=== PATIENT | male | born 1950 | race Caucasian/White ===

== ENCOUNTER 2021-11-06 15:29 | Emergency (ER) | payer MEDICARE, BC, SELFPAY ==
[2021-11-06 15:44] VITALS: BP 159/68; PULSE 81; RESP 20; TEMP 36.6; O2SAT 97; BMI 25.0
--- NOTE | 2021-11-06 15:59 | CRLHL7_ITS ---
For Patients: As a result of the Cures Act, medical imaging exams and procedure reports are released immediately into your electronic medical record. You may view this report before your referring provider. If you have questions, please contact your health care provider. Indication: Trauma. Technique: Right shoulder, 3 views. Comparison: None. Findings: Bones: Alignment is normal. No fractures or bone lesions. Joint spaces: Unremarkable. Soft tissues: Unremarkable. Impression: No sign of acute injury. Dictated by Doug Perkins MD @ 11/06/2021 5:03:38 PM (Electronically Signed)
--- NOTE | 2021-11-06 16:01 | ED_ITS ---
[facility] - General Adult General Date Seen: 11/06/21 Chief complaint: Extremity Pain/Injury, Upper Stated complaint: Fall, Right shoulder injury Time Seen by Provider: 11/06/21 15:30 Source: patient Mode of arrival: ambulatory Limitations: no limitations History of Present Illness HPI narrative: 71-year-old male presents with injury to his right shoulder after a fall at home. He fell from standing height and landed on his right shoulder. It sounds like he did not have an outstretched arm to catch his fall. He denies any other injury. He is having pain over his right clavicle. No previous significant right shoulder injury. He is right-handed. He has Parkinson's disease. He is allergic to penicillin. He only takes carbidopa levodopa for medication. He ambulates fairly well. He does not use a walker or a cane. Related Data Home Medications Medication Instructions Recorded Confirmed carbidopa 25 mg-levodopa 100 mg 3 tab PO QID 11/06/21 11/06/21 tablet Allergies Allergy/AdvReac Type Severity Reaction Status Date / Time Penicillins Allergy Verified 11/06/21 15:48 Review of Systems Narrative: No other illness or injury. [facility] Medical History (Updated 11/06/21 @ 18:08 by James Rodgers MD) Parkinson's disease Social History Smoking Status: Never smoker Do you use any of these nicotine containing products: None How often do you have a drink containing alcohol: never How often do you have six or more drinks on one occasion: Never AUDIT-C Alcohol total score: 0 Non-prescribed substance use: denies use Exam Narrative: Exam Narrative: He is alert and appears in no distress. He gives his own history. He has an obvious coarse tremor involving his entire body. Neck is without significant tenderness. He moves his neck without significant pain Examination of his right shoulder shows tenderness and a palpable click when I palpate over his medial clavicle. Medial clavicle is quite swollen and tender. I cannot palpate continuity. The rest of the shoulder has minimal tenderness and no obvious deformity or swelling. He is able to flex his shoulder about 90? will rule limited by pain. Distal sensation and motion is intact. Respirations clear to auscultation. Abdomen is without tenderness. Radiographs of the right shoulder show what appears to be a displaced fracture of the medial clavicle. Const: Vital Signs, click to edit/add: Vital Signs - 24 hr 11/06/21 15:44 Temperature 97.9 F Pulse Rate [Right Pulse Oximeter] 81 Respiratory Rate 20 Blood Pressure [Le ft Upper Arm] 159/68 H Pulse Oximetry 97 Oxygen Delivery Me thod Room Air Documenting provider has reviewed patient's vital signs: yes Course Vital Signs Vital signs: Initial Vital Signs Temperature 97.9 F 11/06/21 15:44 Temperature Source Temporal Artery Scan 11/06/21 15:44 Pulse Rate 81 11/06/21 15:44 Respiratory Rate 20 11/06/21 15:44 Blood Pressure 159/68 H 11/06/21 15:44 Blood Pressure Mean 98 11/06/21 15:44 Blood Pressure Position Sitting 11/06/21 15:44 Pulse Oximetry 97 11/06/21 15:44 Oxygen Delivery Method 11/06/21 15:44 Vital Signs Temperature 97.9 F 11/06/21 15:44 Pulse Rate 81 11/06/21 15:44 Respiratory Rate 20 11/06/21 15:44 Blood Pressure 159/68 H 11/06/21 15:44 Pulse Oximetry 97 11/06/21 15:44 Oxygen Delivery Method 11/06/21 15:44 Temperature 97.9 F 11/06/21 15:44 Pulse Rate 81 11/06/21 15:44 Respiratory Rate 20 11/06/21 15:44 Blood Pressure 159/68 H 11/06/21 15:44 Pulse Oximetry 97 11/06/21 15:44 Oxygen Delivery Method 11/06/21 15:44 Discharge Plan Discharge Clinical Impression: Fracture of right clavicle Patient Disposition: Home, Self-Care Additional Instructions: Continue the wear the sling to support your arm and reduce your pain. Use ice, Tylenol or ibuprofen as needed for pain. Prescriptions: No Action carbidopa-levodopa 25-100 mg tablet 3 tab PO QID Label Comments: TAKE 3 TABLETS BY MOUTH 4 TIMES DAILY Follow Up/Referrals: Edenilson Mendoza MD [Primary Care Provider] - Coy Shelby MD [Staff Physician] - (4-5 days) Stand Alone Forms: MyHealth Info Instructions
[2021-11-06 18:13] VITALS: BP 130/61; PULSE 69; RESP 16; TEMP 36.2; O2SAT 94
--- NOTE | 2021-11-06 18:20 | CRLHL7_ITS ---
For Patients: As a result of the Century Cures Act, medical imaging exams and procedure reports are released immediately into your electronic medical record. You may view this report before your referring provider. If you have questions, please contact your health care provider. INDICATION: Medial clavicle pain. Injury. COMPARISON: Plain film same date. TECHNIQUE: Multidetector noncontrast images centered on the clavicle. FINDINGS: Somewhat complex angulated fracture of the proximal diaphysis is extra-articular to the moderately degenerated sternoclavicular joint. Surrounding contusion attenuation but no hematoma. Proximal fragment looks somewhat relatively depressed in the sagittal plane but does not appear to contact the subclavicular vascular structures. Slightly ventral cephalad butterfly fragment and inferior dorsal displaced butterfly fragment. Fracture is located roughly 4 cm from the clavicular head. Coracoclavicular distance is maintained. Moderate osteoarthritis of the AC joint. Zali-pl-gyqdxhok osteoarthritis glenohumeral joint. Fibrocystic lucent focus anterior greater tuberosity. There is shallow glenoid version. And grade 1 atrophy of the supraspinatus. Maintained although narrow acromiohumeral distance. Slight lateral downsloping acromion. Curvilinear anterior subacromial spurring. IMPRESSION: Comminuted mildly displaced proximal right clavicular diaphysis fracture. No intra-articular extension. No obvious vascular injury. Some surrounding contusion. Please note that all CT scans at this facility use dose modulation, iterative reconstruction, and/or weight-based dosing when appropriate to reduce radiation dose to as low as reasonably achievable. Dictated by Luca Brewster MD @ 11/06/2021 7:36:37 PM (Electronically Signed)
--- NOTE | 2021-11-06 18:40 | ED.NURSE ---
Pt to and back from CT
== END 2021-11-06 19:59 | disposition home or self-care (01) ==
PROVIDERS: Emergency Provider Family Medicine; PCP Psychiatry & Neurology Neurology
DX: S42.021A Displaced fracture of shaft of right clavicle, initial encounter for closed fracture (principal); W01.0XXA Fall on same level from slipping, tripping and stumbling without subsequent striking against object, initial encounter
CPT/HCPCS: 73030; 73200; 99283; 99284

== ENCOUNTER 2023-12-03 10:52 | Outpatient (CLI) | payer MEDICARE, BC, SELFPAY | END 2023-12-03 10:53 | disposition home or self-care (01) | PROVIDERS: PCP Psychiatry & Neurology Neurology; Visit Provider Physician Assistant | DX: R31.9 Hematuria, unspecified (principal) | CPT/HCPCS: 87086 ==

== ENCOUNTER 2025-01-17 14:43 | Emergency (ER) | payer MEDICARE, BC, SELFPAY ==
[2025-01-17] VITALS (15 sets, daily range): BP systolic 145–190; BP diastolic 62–116; PULSE 86–122; RESP 12–27; TEMP 36.6; O2SAT 99; BMI 20.6
--- NOTE | 2025-01-17 15:30 | ED.ARRPALP ---
HPI - Arrhythmia/Palpitations General Chief Complaint: Arrhythmia/Palpitations Stated Complaint: Afib, chest pain Time Seen by Provider: 01/17/25 15:18 History of Present Illness HPI narrative: This 74-year-old male has Parkinson's disease and history of chronic atrial fibrillation. He comes in today feeling some palpitations and reporting some pain in the right lateral chest wall. He does not report any lightheadedness or shortness of breath. He does take metoprolol and did take this medicine this morning. He arrives here with irregular heart rhythm and a rate of about 120 beats per minute. He does see a automotive glass technician and had an echocardiogram a couple months ago. He does take Eliquis for anticoagulation. Related Data Home Medications ?Medication ?Instructions ?Recorded ?Confirmed apixaban 2.5 mg tablet (Eliquis) 2.5 mg PO BID 12/03/23 01/17/25 metoprolol succinate 100 mg 100 mg PO DAILY 12/03/23 01/17/25 tablet,extended release 24 hr carbidopa ER 50 mg-levodopa 200 mg tab PO 01/17/25 tablet,extended release rosuvastatin 5 mg tablet 5 mg PO DAILY 01/17/25 01/17/25 Allergies Allergy/AdvReac Type Severity Reaction Status Date / Time Penicillins Allergy Verified 05/06/24 10:24 Review of Systems Status of ROS: Reports: 10 or more systems reviewed and unremarkable except as noted in History and below Narrative: Constitutional: No fevers, no weight gain or loss. Eyes: No discharge. No vision changes. HENT: No congestion, no sore throat, no ear pain. Cardiovascular: Some palpitations and right-sided chest discomfort. Respiratory: No shortness of breath, no wheezes, no cough. Gastrointestinal: No abdominal pain, no vomiting, no diarrhea. Genitourinary: No dysuria, no hematuria. Musculoskeletal: Normal range of motion. Skin: No rashes, no pruritis. Neurological: No dizziness, weakness, sensory change, speech change. Parkinson's symptoms with resting tremors. Endo/Heme/Allergies: No bruising or bleeding. No polydipsia. Pysch: no suicidality, no anxiety, no insomnia. All other systems reviewed and are negative. [facility] Medical History Parkinson's disease ?G20 - Parkinson's disease (ICD-10) Social History Smoking Status: Never smoker Do you use any of these nicotine containing products: None How often do you have a drink containing alcohol: never How often do you have six or more drinks on one occasion: Never AUDIT-C Alcohol total score: 0 Non-prescribed substance use: denies use Exam Narrative: Exam Narrative: Constitutional: Well-developed, well-nourished, no acute distress. HEENT: Normocephalic, atraumatic. Neck: Normal range of motion. Nontender. Supple. Heart: Irregular. No murmurs. Tachycardia. Intact distal pulses. Lungs: Clear to auscultation. No chest discomfort. No wheezes, rhonchi, or rales. Abdomen: Normal bowel sounds. Nontender. No rebound tenderness. Genitalia: Deferred. Back: No midline tenderness. Normal range of motion. Extremities: Normal range of motion. No injury. Skin: Intact. No rash. Warm. No erythema or pallor. Neurologic: No altered sensation. No weakness. Alert and oriented. Psychiatric: No suicidality. No anxiety or depression. No insomnia. Nursing notes and vitals signs are reviewed. Const: Vital Signs, click to edit/add: Vital Signs - 24 hr 01/17/25 14:56 01/17/25 15:15 01/17/25 15:30 Temperature 98 F Pulse Rate Pulse Rate [Pulse Oximeter] 122 H Respiratory Rate 20 12 22 Blood Pressure Blood Pressure [Ri ght Upper Arm] 187/62 H Pulse Oximetry 99 Oxygen Delivery Me thod Room Air 01/17/25 15:49 01/17/25 16:00 01/17/25 16:01 Temperature Pulse Rate Pulse Rate [Pulse Oximeter] Respiratory Rate 20 24 17 Blood Pressure 190/116 H Blood Pressure [Ri ght Upper Arm] Pulse Oximetry Oxygen Delivery Me thod 01/17/25 16:23 01/17/25 16:24 01/17/25 16:30 Temperature Pulse Rate 86 Pulse Rate [Pulse Oximeter] Respiratory Rate 21 24 19 Blood Pressure 145/98 H Blood Pressure [Ri ght Upper Arm] Pulse Oximetry Oxygen Delivery Ct thod 01/17/25 16:32 01/17/25 16:45 01/17/25 16:47 Temperature Pulse Rate Pulse Rate [Pulse Oximeter] Respiratory Rate 23 27 H 21 Blood Pressure 167/76 H 176/72 H Blood Pressure [Ri ght Upper Arm] Pulse Oximetry Oxygen Delivery Me thod Course Vital Signs Vital signs: Initial Vital Signs Temperature 98 F 01/17/25 14:56 Temperature Source Temporal Artery Scan 01/17/25 14:56 Pulse Rate 122 H 01/17/25 14:56 Pulse Rhythm Irregular 01/17/25 14:56 Respiratory Rate 20 01/17/25 14:56 Blood Pressure 187/62 H 01/17/25 14:56 Blood Pressure Mean 103 01/17/25 14:56 Blood Pressure Position Sitting 01/17/25 14:56 Pulse Oximetry 99 01/17/25 14:56 Oxygen Delivery Method Room Air 01/17/25 14:56 Vital Signs Temperature 98 F 01/17/25 14:56 Pulse Rate 122 H 01/17/25 14:56 Respiratory Rate 20 01/17/25 14:56 Blood Pressure 187/62 H 01/17/25 14:56 Pulse Oximetry 99 01/17/25 14:56 Oxygen Delivery Method Room Air 01/17/25 14:56 Temperature 98 F 01/17/25 14:56 Pulse Rate 86 01/17/25 16:23 Respiratory Rate 21 01/17/25 16:47 Blood Pressure 176/72 H 01/17/25 16:47 Pulse Oximetry 99 01/17/25 14:56 Oxygen Delivery Method Room Air 01/17/25 14:56 Medications Administered Medications: Discontinued Medications Generic Name Dose Route Start Last Admin Trade Name Jiq PRN Reason Stop Dose Admin Diltiazem HCl 20 mg 01/17/25 15:28 01/17/25 15:59 Diltiazem 5 Mg/Ml Inj IVP 01/17/25 15:29 20 mg ONCE ONE Administration Sodium Chloride 1,000 mls @ 1,000 mls/hr 01/17/25 15:30 01/17/25 15:59 0.9 % Sodium Chloride 1000 Ml IV 01/17/25 16:29 1,000 mls/hr .Q1H PAUL Administration MDM - Arrhythmia/Palpitations MDM Narrative Medical decision making narrative: This patient is brought in by his daughter because of some increased heart rate related to his atrial fibrillation. Throughout his stay here he has had normal heart rate with his chronic atrial fibrillation. He is not describing any new symptoms otherwise. EKG shows no sign of ST or T-wave abnormalities. Labs returned also with reassuring results. His sodium is a bit low at 129 so advised him to add some any salt to his diet for a bit. He is not on any medicines that are wasting sodium. He does take metoprolol succinate 100 mg daily. He may need an adjustment in his medications but he plans to follow-up with his automotive glass technician in this regard. He provided some urine and his daughter wanted this analyzed. There was some microscopic hematuria but no sign of infection. I advised him to have this rechecked also. Lab Data Labs: Lab Results 01/17/25 01/17/25 01/17/25 Range/Units 15:07 15:29 15:45 WBC 9.82 (4.50-11.00) K/uL RBC 4.44 (4.30-5.90) m/uL Hgb 13.3 L (13.5-17.5) gm/dL Hct 40.1 (37.0-53.0) % MCV 90 (80-100) fL MCH 30 (26-34) pg MCHC 33 (32-36) gm/dL RDW Coeff of Chris 13.0 (11.5-15.5) % Plt Count 137 L (140-440) K/uL Neut % (Auto) 79.5 H (42.0-72.0) % Lymph % (Auto) 10.7 L (20-44) % [place] % (Auto) 7.8 (0.0-11.0) % Eos % (Auto) 1.2 (0.0-7.0) % Baso % (Auto) 0.3 (0.0-3.0) % Neut # (Auto) 7.80 H (1.7-7.0) K/uL Lymph # (Auto) 1.10 (0.90-2.90) K/uL [place] # (Auto) 0.80 (0.00-0.90) K/UL Eos # (Auto) 0.12 (0.00-0.50) K/uL Baso # (Auto) 0.03 (0.00-0.30) K/uL Abs Immat Gran (auto) 0.05 (0.00-0.30) K/uL Imm/Tot Granulo (auto) 0.5 % Sodium 129 L (135-149) mmol/L Potassium 3.5 L (3.6-5.1) mmol/L Chloride 94 L (96-114) mmol/L Carbon Dioxide 27 (20-32) mmol/L Anion Gap 8 (7-15) mEq/L BUN 15 (7-30) mg/dL Creatinine 0.8 (0.5-1.5) mg/dL Estimated Creat Clear 70.69 Estimated GFR 94 ml/min Glucose 103 (60-115) mg/dL Calcium 9.1 (8.4-10.6) mg/dL Magnesium 2.0 (1.5-2.6) mg/dL Urine Color Yellow (Yellow) Urine Appearance Clear (Clear) Urine pH 6.5 (5.0-8.5) Ur Specific [place] 1.010 (1.000-1.030) Urine Protein Negative (Negative) Urine Glucose (UA) Negative (Negative) Urine Ketones Negative (Negative) Urine Blood 2+ A (Negative) Urine Nitrite Negative (Negative) Urine Bilirubin Negative (Negative) Urine Urobilinogen 0.2 (0.2-1.0) Ur Leukocyte Esterase Negative (Negative) Urine RBC 2-5 A (0-2) Urine WBC 0-2 (0-5) Ur Squamous Epith Cells None (None-Few) Urine Bacteria None (None) POC Troponin I 0.01 (0.01-0.04) ng/ml ECG Data Attestation: I personally reviewed and interpreted this ECG as follows: Interpretation: Atrial fibrillation with rapid ventricular response. Rate is 107 beats per minute. There are no specific ST or T-wave abnormalities. Discharge Plan Discharge Clinical Impression: Atrial fibrillation Patient Disposition: Home, Self-Care Condition: Stable Additional Instructions: Continue current plans. Follow up with primary physician and cardiology clinic for ongoing management. Return if worsening. Prescriptions: No Action metoprolol succinate 100 mg tablet extended release 24 hr 100 mg PO DAILY Eliquis 2.5 mg tablet 2.5 mg PO BID carbidopa-levodopa 50-200 mg tablet extended release PO rosuvastatin 5 mg tablet 5 mg PO DAILY Follow Up/Referrals: Sundeep Mccormack MD [Primary Care Provider, Family Practice] Stand Alone Forms: MyHealth Info Instructions
--- OUTSIDE RECORDS SUMMARY | 2025-01-17 15:39 | XMS_ITS | Encounter Summary ---
Author Organization [facility] Address [address] [place] [address] Care Team Providers Care Biology Teacher Name Role Phone Sundeep Mccromack M.D. Primary Care [place]os carvalho Encounter Details Date Type Department Care Team (Latest Contact Info) Description 11/14/2024 Clinical Communication Department of Cardiovascular Diseases in [place], [place] [address] [place] [phone] David Morton M.D. [address] [place] [phone] Social History Tobacco Use Types Packs/Day Years Used Date Smoking Tobacco: Never Smokeless Tobacco: Never Alcohol Use Standard Drinks/Week Comments Not Currently 0 (1 standard drink = 0.6 oz pur e alcohol) [facility] Utilities Answer Date Recorded In the past 12 months has e electric, gas, oil, or water company threatened to shut off services in your home? No 08/06/2024 Humiliation, Afraid, Rape, and Kick questionnair e Answer Date Recorded Within the last year, have y ou been afraid of your partner or ex-partner? No 06/15/2022 Within the last year, have y ou been humiliated or emotionally abused in other ways by your partner or ex-partner? No Within the last year, have y ou been kicked, hit, slapped, or otherwise physically hurt by your partner or ex-partner? No 06/15/2022 Within the last year, have y ou been raped or forced to have any kind of sexual activity by your partner or ex-partner? No 06/15/2022 Hunger Vital Sign Answer Date Recorded Within the past 12 months, y ou worried that your food would run out before you got the money to buy more. Never true 08/07/19 25 Within the past 12 months, t he food you bought just didn't last and you didn't have money to get more. Never true 08/06/2024 PRAPARE - Transportation Answer Date Re corded In the past 12 months, has l ack of transportation kept you from medical appointments or from getting medications? No 07/2024 In the past 12 months, has l ack of transportation kept you from meetings, work, or from getting things needed for daily living? No 08/06/2024 Housing Stability Answer Date Recorded What is your living situation today? I have a [facility] place to live 08/06/2024 Education Answer Date Recorded What is the highest level of school you have completed or the highest degree you have received? Associate degree: occupational, technical, or vocational program 06/01/2020 Sex and Gender Information Value Date Recorded Sex Assigned at Male 04/10/2018 7:35 PM MACHINIST APPRENTICE Legal Sex Male 4:22 PM MACHINIST APPRENTICE Gender Identity Male 04/10/2018 7:35 PM MACHINIST APPRENTICE Sexual Orientation Straight 04/10/2018 7: 35 PM MACHINIST APPRENTICE documented as of this encounter Plan of Treatment Upcoming Encounters Date Type Department Care Team (Late st Contact Info) Description 01/18/2025 9:50 AM CDT Appointment Department of Laboratory Medicine in [place], [place] [address] [place] [phone] David Morton M.D. [address] [place] [phone] 01/18/2025 10:15 AM CDT Office Visit Department of Family Medicine, [facility], in [place], [place] [address] [place] [phone] Sundeep Mccormack M.B.B.S., M.D. [address] [facility] [place] [phone] documented as of this encounter Visit Diagnoses Not on filedocumented in this encounter Additional Health Concerns Assessment Noted Time PHQ-9 Depression Total Score: 0 03/11/20 15 3:49 PM MACHINIST APPRENTICE A fall risk assessment has been complete d for the patient 07/16/2022 11:19 AM CDT documented as of this encounter Care Teams Biology Teacher Relationship Specialty Start Date End Date Sundeep Mccormack M.B.B.S., Alicja. [address] [facility] [place] [phone] PCP - General Family Medicine 06/25/22 [facility] 07/16/22 documented as of this encounter
--- OUTSIDE RECORDS SUMMARY | 2025-01-17 15:39 | XMS_ITS | Clinical Summary ---
Author Organization [facility] Address [address] [place] [address] Care Team Providers Care Rod Piler Name Role Phone Sundeep Mccormack Primary Care Provider Encounters Date Type Department Care Team Description 11/03/2024 1:00 PM CDT Ancillary Procedure [facility] [address] [place] [phone] 11/03/2024 Travel from Last 3 Months Immunizations Immunization Administration Dates Next Due COVID-19 VACCINE SPIKEVAX (M ODERNA 50MCG/0.5ML) 12YO+ PFS 12/23/2023 Influenza, High-dose Quadrivalent Inactivated ,01/10/2022 Influenza, Inactivated IIV3 (Age 65+ Years) Preserv Free 12/23/2023 Pneumococcal conj 13-Valent (Prevnar 13) 018 RSV, Recombinant ADJ Reconst ituted (Arexvy 120MCG/0.5mL) 03/17/2023 Tdap 09/29/2011 Social History Tobacco Use Types Packs/Day Years Used Date Smoking Tobacco: Never Assessed Sex and Gender Information Value Date Recorded Sex Assigned at Not on file Legal Sex Male 1:54 PM CDT Gender Identity Not on file Sexual Orientation Not on file Plan of Treatment Health Maintenance Due Date Last Done Comments Depression screening for age 12+ 1964 BMI (ht and wt on same day) for age 18+ 1970 Hepatitis C screening for age 18-79 1970 Colonoscopy through age 75 1997 Lipids for age 45-75 1997 Zoster (shingles) series for age 50+ (1 of 2) 2002 Pneumococcal series for age 50+ (2 of 2 - PCV20 or PCV21) 01/14/2019 01/14/2018 Tetanus booster 09/28/2021 09/29/2011 COVID-19 vaccine series ( season) 2024 12/23/2023, 01/19/2023, 01/10/2022, Additional history exists Influenza Vaccine (#1) 2024 12/23/2023 RSV vaccine for adults or Completed 03/17/2023 Hepatitis B series for 19+ Aged Out N o longer eligible based on patient's age to complete this topic Procedures Procedure Name Priority Date/Time Associated Diagnosis Comments ECHO TTE COMPLETE WO CONTRAST Routine 11/03/2024 1:35 PM CDT Atrial fibrillation (HC) from Last 3 Months Results * ECHO TTE COMPLETE WO CONTRAST (11/03/2024 1:35 PM CDT) AORTIC VALVE MEAN PG 5 mmHg EJECTION FRACTION 52 % PEAK TR VELOCITY 3.1 m/s LVEDD 4.6 cm EJECTION FRACTION 50 - 55% Anatomical Region Laterality Modality Ultrasound 11/03/2024 12:5 5 PM CDT Narrative 11/03/2024 4:38 PM CDT ECHOCARDIOGRAM FRANCIS LOFTON : 1950 73 years Study Date: 11/03/2024 12:55:50 PM Gender: M BP: 186/86 mmHg Height: 191.00 cm BSA: 2.11 m Weight: 82.00 kg Tech: FERNANDA Referring MD: ERIC ROSADO Site: [facility] Reading Location: Mobile OP Patient Location: Outpatient. Procedure: 2D, Color Doppler and Spectral Doppler. Indication for study: At-fib Cardiac Rhythm: Atrial fibrillation.Study quality: Fair. Final Impressions: 1. Normal left ventricular size, mildly increased wall thickness, low normal global systolic function, calculated EF of 52 %. 2. The aortic valve is trileaflet, no stenosis and moderate to severe regurgitation. 3. Moderately enlarged left atrium. 4. Tricuspid valve is normal, moderate tricuspid regurgitation. 5. Color Doppler suggests a left to right atrial level shunt. 6. Dilated sinus of Valsalva, diameter of 4.6 cm (upper limit of normal for age, sex, and BSA is 4.2 cm*), Height Index 2.40 cm/m. 7. Mixed parameters for AI assessment, eccentric AI with intemittent steep slope and reversal of flow in aortic arch. Consider further assessment for evaluation of AI severity. Chamber Sizes and Function Normal left ventricular size, mildly increased wall thickness, low normal global systolic function, calculated EF of 52 %. No resting regional wall motion abnormality visualized. Left atrial size is moderately enlarged. Right ventricular cavity size is normal, global systolic RV function is normal. The right atrium is moderately enlarged. Right atrial area is 30 cm . The pulmonary artery is of normal size and origin. The sinus of Valsalva is dilated. The ascending aorta is normal sized. Valves, RV Pressures and Diastolic Function The aortic valve is trileaflet, no stenosis and moderate to severe regurgitation. The mitral valve is normal in structure, trace mitral regurgitation. Diastolic function assessment not performed. The tricuspid valve is normal in structure, moderate tricuspid regurgitation. The tricuspid regurgitant velocity is 3.1 m/s, the estimated right ventricular systolic pressure is 39 mmHg plus right atrial pressure. The pulmonic valve is normal. No pulmonary regurgitation. TTE images do not appear adequate for transcather intervention with patient supine. Masses, Effusion, Shunts There is no pericardial effusion. The inferior vena cava is normal sized, respiratory size variation greater than 50%. Color flow Doppler suggests a left to right shunt across the interatrial septum. MEASUREMENTS AND CALCULATIONS 2-D Measurements and LV Function: LVID (d) 4.6 cm Planimetered EF 52 % LVID (s) 3.2 cm LV FS% (2D) 32 % IVS (d) 1.4 cm LVOT diameter 2.3 cm LVPW (d) 1.2 cm HR 111 bpm Ao Sinus 4.6 cm LA Vol index 47 ml/m2 Ao Sinus ULN 4.2 cm * RA area 30 cm Asc Ao 3.5 cm RV Basal Diam 4.0 cm Asc Ao ULN 4.3 cm * RV Mid Diam 2.1 cm * Input BSA outside of range, reported values correspond to BSA = 2.1 Diastology: Mitral E Peak 1.0 m/s Aortic Valve: Vmax 1.5 m/s SHAUN (V) 3.59 cm VTI 0.34 m SHAUN (I) 3.58 cm LVOT V max 1.3 m/s Max PG 9 mmHg LVOT VTI 0.29 m Mean PG 5 mmHg SV 120 ml Dim Index 0.85 SV index 57 ml/m CO 13.4 l/min CI 6.3 l/min/m Tricuspid Valve and estimated PA pressures: TR Vmax 3.1 m/s TAPSE 2.2 cm TR maxG 39 mmHg . This study was interpreted by an [facility] accredited facility. Final Procedure Note Kevin Mejias MD - 11/03/2024 ECHOCARDIOGRAM FRANCIS LOFTON : 1950 73 years Study Date: 11/03/2024 12:55:50 PM Gender: M BP: 186/86 mmHg Height: 191.00 cm BSA: 2.11 m Weight: 82.00 kg Tech: FERNANDA Referring MD: ERIC ROSADO Site: [facility] Reading Location: Mobile OP Patient Location: Outpatient. Procedure: 2D, Color Doppler and Spectral Doppler. Indication for study: At-fib Cardiac Rhythm: Atrial fibrillation.Study quality: Fair. Final Impressions: 1. Normal left ventricular size, mildly increased wall thickness, lownormal global systolic function, calculated EF of 52 %. 2. The aortic valve is trileaflet, no stenosis and moderate to severeregurgitation. 3. Moderately enlarged left atrium. 4. Tricuspid valve is normal, moderate tricuspid regurgitation. 5. Color Doppler suggests a left to right atrial level shunt. 6. Dilated sinus of Valsalva, diameter of 4.6 cm (upper limit of normalfor age, sex, and BSA is 4.2 cm*), Height Index 2.40 cm/m. 7. Mixed parameters for AI assessment, eccentric AI with intemittentsteep slope and reversal of flow in aortic arch. Consider furtherassessment for evaluation of AI severity. Chamber Sizes and Function Normal left ventricular size, mildly increased wall thickness, low normalglobal systolic function, calculated EF of 52 %. No resting regional wallmotion abnormality visualized. Left atrial size is moderately enlarged.Right ventricular cavity size is normal, global systolic RV function isnormal. The right atrium is moderately enlarged. Right atrial area is 30cm . The pulmonary artery is of normal size and origin. The sinus ofValsalva is dilated. The ascending aorta is normal sized. Valves, RV Pressures and Diastolic Function The aortic valve is trileaflet, no stenosis and moderate to severeregurgitation. The mitral valve is normal in structure, trace mitralregurgitation. Diastolic function assessment not performed. The tricuspidvalve is normal in structure, moderate tricuspid regurgitation. Thetricuspid regurgitant velocity is 3.1 m/s, the estimated right ventricularsystolic pressure is 39 mmHg plus right atrial pressure. The pulmonicvalve is normal. No pulmonary regurgitation. TTE images do not appearadequate for transcather intervention with patient supine. Masses, Effusion, Shunts There is no pericardial effusion. The inferior vena cava is normal sized,respiratory size variation greater than 50%. Color flow Doppler suggests aleft to right shunt across the interatrial septum. MEASUREMENTS AND CALCULATIONS 2-D Measurements and LV Function: LVID (d) 4.6 cm Planimetered EF 52% LVID (s) 3.2 cm LV FS% (2D) 32% IVS (d) 1.4 cm LVOT diameter2.3 cm LVPW (d) 1.2 cm HR111 bpm Ao Sinus 4.6 cm LA Vol index 47ml/m2 Ao Sinus ULN 4.2 cm * RA area 30cm Asc Ao 3.5 cm RV Basal Diam4.0 cm Asc Ao ULN 4.3 cm * RV Mid Diam2.1 cm * Input BSA outside of range, reported values correspond to BSA = 2.1 Diastology: Mitral E Peak 1.0 m/s Aortic Valve: Vmax 1.5 m/s SHAUN (V) 3.59 cm VTI 0.34 m SHAUN (I) 3.58 cm LVOT V max 1.3 m/s Max PG 9 mmHg LVOT VTI 0.29 m Mean PG 5 mmHg SV 120 ml Dim Index 0.85 SV index 57 ml/m CO 13.4 l/min CI 6.3 l/min/m Tricuspid Valve and estimated PA pressures: TR Vmax 3.1 m/s TAPSE 2.2 cm TR maxG 39 mmHg . This study was interpreted by an [facility] accredited facility. Final us Eric Rosado MD ECHO ORD Final Result from Last 3 Months Insurance BLUE [employer]OSS [place] BLUE MR PB ONLY Care Teams Rod Piler Relationship Specialty Start Date End Date Sundeep Mccormack MBBS [address] [place] [address] [place] [address] PCP - General Family Practice 12/23/23
--- OUTSIDE RECORDS SUMMARY | 2025-01-17 15:39 | XMS_ITS | Encounter Summary ---
Author Organization [facility] Address [address] [place] [address] Care Team Providers Care Gm Video Name Role Phone Sundeep Mccormack M.D. [facility] Reason for Referral * Outpatient (Routine) - Authorized Specialty Diagnoses / Procedures Referred By Contac t Referred To Contact Sundeep Mccormack M.B.B.S., M.D. [address] [place] [address] Phone: tel: fax: [facility] Region Referral ID Status Reason Start Date Expiration Date V isits Requested Visits Authorized [id number] Authorized 01/10/2025 07/12/2026 1 1 Scheduling Instructions Nurse AWV Do not schedule prior to due date to ensure insurance coverage Visit: Medicare Annual Wellness due on 07/18/2023. Encounter Details Date Type Department Care Team (Late st Contact Info) Description 01/10/2025 Orders Only [facility] PCP [facility] MNT Sundeep Mccormack M.B.B.S., M.D. [address] [place] [address] Social History Tobacco Use Types Packs/Day Years Used Date Smoking Tobacco: Never Smokeless Tobacco: Never Alcohol Use Standard Drinks/Week Comments Not Currently 0 (1 standard drink = 0.6 oz pur e alcohol) [facility] Utilities Answer Date Recorded In the past [...] your living situation today? I have a [facility] place to live 08/06/2024 Education Answer Date Recorded What is the highest level of school you have completed or the highest degree you have received? Associate degree: occupational, technical, or vocational program 06/01/2020 Sex and Gender Information Value Date Recorded Sex Assigned at Male 04/10/2018 7:35 PM DYE RANGE OPERATOR CLOTH Legal Sex Male 4:22 PM DYE RANGE OPERATOR CLOTH Gender Identity Male 04/10/2018 7:35 PM DYE RANGE OPERATOR CLOTH Sexual Orientation Straight 04/10/2018 7: 35 PM DYE RANGE OPERATOR CLOTH documented as of this encounter Plan of Treatment Upcoming Encounters Date Type Department Care Team (Late st Contact Info) Description 01/18/2025 9:50 AM CDT Appointment Department of Laboratory Medicine in [place], [place] [address] [place] [address] David Morton M.D. [address] [place] [address] 01/18/2025 10:15 AM CDT Office Visit Department of Family Medicine, [facility], in [place], [place] [address] [place] [address] Sundeep Mccormack M.B.B.S., M.D. [address] [place] [address] Scheduled Referrals Name Type Priority Associated Diagnoses Orde r Schedule Primary Care nurse visit (clinic) - [facility] Region; Medicare Annual Wellness Outpatient Referral Routine Expected: 02/07/2025, Expires: 06/29/2025 documented as of this encounter Visit Diagnoses Not on filedocumented in this encounter Additional Health Concerns Assessment Noted Time PHQ-9 Depression Total Score: 0 03/11/20 15 3:49 PM DYE RANGE OPERATOR CLOTH A fall risk assessment has been complete d for the patient 07/16/2022 11:19 AM CDT documented as of this encounter Care Teams Gm Video Relationship Specialty Start Date End Date Sundeep Mccormack M.B.B.S. MJanel [address] [place] [phone] PCP - General Family Medicine 06/25/22 [facility] 07/16/22 documented as of this encounter
--- OUTSIDE RECORDS SUMMARY | 2025-01-17 15:39 | XMS_ITS | Clinical Summary ---
Author Organization [facility] Address [address] [place] [address] Care Team Providers Care Foxing Cutting Machine Operator Name Role Phone Sundeep Mccormack M.D. Primary Care Tacos carvalho Source Comments Patient records contain information from all sites at [facility]. For routine questions regarding patient records, call [phone] during business hours, M-F 8:00 AM - 5:00 PM Central Time. Record requests for emergency care only can be directed to [phone] at any time.[facility] Allergies Active Allergy Reactions Criticality Noted Date Comments Penicillins Other (see comments) 09/29/2011 Medications * This document contains information received from the source organization and may not represent a complete record from that organization. MULTIVITAMIN ORAL Take by mouth daily. 2 Active coenzyme Q10 10 mg capsule Take by mouth as needed. Active cholecalciferol (Vitamin D3) 50 mcg (2,000 Unit) tablet Take 50 mcg by mouth daily. Takes occasionally Active carbidopa-levodo pa (Sinemet CR) 50-200 mg per ER tablet Take 2 tablets by mouth 3 (three) times a day. Take at 7-8am, 2pm and 7pm. 180 tablet 11 5 Active apixaban (Eliquis) 2.5 mg tabletIndication s:Atrial Fibrillation Unspecified (HCC) Take 1 tablet (2.5 mg total) by mouth 2 (two) times a day. 180 tablet 3 5 026 Active metoprolol succinate (Toprol XL) 100 mg 24 hr tabletIndication s:Atrial Fibrillation Unspecified (HCC) Take 1 tablet (100 mg total) by mouth daily. 90 tablet 3 5 026 Active rosuvastatin (Crestor) 5 mg tablet Take 1 tablet (5 mg total) by mouth daily. 30 tablet 11 5 026 Active Active Problems Patient Care Coordination No te Formatting of this note migh t be different from the original. Authorization to disclose protected health information signed for Daughter Dania Reyes on 04/15/18. Problem Noted Date Diagnosed Date Atrial Fibrillation Unspecified 08/09/2023 Assessment & Plan (10/14/2024 12:55 PM CDT): Orders: apixaban (Eliquis) 2.5 mg tablet; Take 1 tablet (2.5 mg total) by mouth 2 (two) times a day. metoprolol succinate (Toprol XL) 100 mg 24 hr tablet; Take 1 tablet (100 mg total) by mouth daily. Sodium; Future Potassium; Future Creatinine with Estimated GFR; Future History Of Falling 09/23/2022 Dystonia 04/15/2018 Parkinsonism Unspecified 03/08/2013 Overview (08/25/2016): Parkinson's Disease, Primary* Encounters Date Type Department Care Team Description 01/10/2025 Orders Only [facility] Sundeep Mccormack M.B.B.S., MVelia. 11/14/2024 Clinical Communication Department of Cardiovascular Diseases in [place], [place] [address], [place] [address] David Morton M.D. from Last 3 Months Immunizations Immunization Administration Dates Next Due Influenza TIV (IM) 12/23/2023 Influenza high dose QV(65 years or older) (PF) 1 ,01/10/2022 Influenza, Quadrivalent, Adjuvanted, Preservativ e Free 12/21/2020 Influenza, Unspecified 03/07/2015,02/28/2014 PCV13 01/14/2018 PCV20 09/29/2024 RSV: respiratory syncytial v irus (AREXVY) recombinant vaccine 03/17/2023 SARS-COV-2 (COVID-19) - PFIZ ER (Discontinued)(12 years or older) 07/06/2020,06/15/2020 Tdap 09/29/2024,09/29/2011 influenza trivalent high dose (HD)(PF) 8 influenza trivalent vaccine (6 months and older) (PF) 12/04/2019 Family History Medical History Relation Name Comments Arthritis Daughter 1 Dania Thyroid disease Daughter 1 Dania Thyroid disease Daughter 2 Essie Hypertension Father 1 Cancer Father 2 Min Lung Cancer/Mes othelioma Asthma Sister 1 Cierra Arthritis Sister 2 Dinora Hypertension Sister 2 Dinora Cancer Sister 3 Lisa Lung Cancer Lung cancer Sister 3 Lisa Smoker Sister 3 Lisa Cancer Sister 4 Lisa Lung Cancer Lung cancer Sister 4 Lisa Smoker Sister 4 Lisa No Known Problems Son Xu Relation Name Status Comments Daughter 1 Dania Alive Daughter 2 Essie Alive Father 1 Father 2 Min Alive Sister 1 Cierra Alive Sister 2 Dinora Alive Sister 3 Lisa Sister 4 Lisa Alive Son Xu Alive Social History Tobacco Use Types Packs/Day Years Used Date Smoking Tobacco: Never Smokeless Tobacco: Never Tobacco Cessation:Counseling Given: Not Answered Alcohol Use Standard Drinks/Week Comments Not Currently 0 (1 standard drink = 0.6 oz pur e alcohol) [facility] Utilities Answer Date Recorded In the past 12 months has [facility] [employer], [employer], or water [employer] threatened to shut off services in your [...] your living situation today? I have a [facility] place to live 08/06/2024 Education Answer Date Recorded What is the highest level of school you have completed or the highest degree you have received? Associate degree: occupational, technical, or vocational program 06/01/2020 Sex and Gender Information Value Date Recorded Sex Assigned at Male 04/10/2018 7:35 PM HEARING AID REPAIRER Legal Sex Male 4:22 PM HEARING AID REPAIRER Gender Identity Male 04/10/2018 7:35 PM HEARING AID REPAIRER Sexual Orientation Straight 04/10/2018 7: 35 PM HEARING AID REPAIRER Last Filed Vital Signs Vital Sign Reading Time Taken Comments Blood Pressure 171/65 10/13/2024 10:18 AM CDT Pulse 90 10/13/2024 10:18 AM CDT Temperature 35.3 C (95.6 F) 08/09/2023 10:19 AM CDT Respiratory Rate 16 08/09/2023 10:19 AM CDT Oxygen Saturation 100% 10/13/2024 10:11 AM CDT Inhaled Oxygen Concentration - - Weight 77.2 kg (170 lb 3.1 oz) 10/13/2024 10:11 AM CDT Height 188.9 cm (6' 2.37) 08/09/2023 10:19 AM C DT Body Mass Index 21.63 08/09/2023 10:19 AM CDT Plan of Treatment Upcoming Encounters Date Type Department Care Team (Late st Contact Info) Description 01/18/2025 9:50 AM CDT Appointment Department of Laboratory Medicine in [place], [place] [address] [place] [address] David Morton M.D. [address] [place] [address] 01/18/2025 10:15 AM CDT Office Visit Department of Family Medicine, [facility], in [place], [place] [address] [place] [address] Sundeep Mccormack M.B.B.S., M.D. [address] [place] [phone] Health Maintenance Due Date Last Done Comments CT Colonography 1950 Cologuard 1950 Colonoscopy 1950 Colorectal Cancer Screening 1950 FIT 1950 Hepatitis C Screening 1950 Zoster Vaccines (1 of 2) 2002 Visit: Medicare Annual Wellness 07/18/2023 07/16/2022 Depression Screening (Annual PHQ-2) 04/05/2024 Visit: Annual, age 65+ (or Medicare and <65) 08/08/2024 08/09/2023 COVID-19 Vaccine ( season) 2025 12/10/2024, 12/23/2023, 01/19/2023, Additional history exists Fasting Glucose for Diabetes Screening 10/05/2026 10/06/2023, 07/16/2022, 10/16/2016, Additional history exists DTaP,Tdap,and Td Vaccines (3 - Td or Tdap) 09/29/2034 09/29/2024, 09/29/2011 RSV vaccine - (32-36 weeks) or 50+ years Completed 03/17/2023 Fall Risk Screen (Annual) Completed 09/29/2024 Pneumococcal vaccine (50+ years) Completed 09/29/2024, 01/14/2018 Influenza Vaccine Completed 12/10/2024, , 01/19/2023, Additional history exists IPV Vaccines Aged Out No longer eligi ble based on patient's age to complete this topic Medical Devices Implanted Type Area Pressfitter Device Identifier Shelf Expiration Date Model / Serial / Lot Ocular Lens Ocular Lens Bilateral : Eye Procedures Procedure Name Priority Date/Time Associated Diagnosis Comments COMPREHENSIVE METABOLIC PANEL, S/P Routine 10/06/2023 9:57 AM CDT Atrial Fibrillation Unspecified (HCC) from Last 3 Months or Most Recently Relevant to Health Maintenance Results * (ABNORMAL) Comprehensive Metabolic Panel (10/06/2023 9:57 AM CDT) Potassium, P 4.0 3.6 - 5.2 mmol/L 10/06/2023 1:34 PM CDT OWAT Sodium, P 137 135 - 145 mmol/L 10/06/2023 1:34 PM CDT OWAT Chloride, P 103 98 - 107 mmol/L 10/06/2023 1:34 PM CDT OWAT Bicarbonate, P 25 22 - 29 mmol/L 10/06/2023 1:34 PM CDT OWAT Anion Gap, P 9 7 - 15 10/06/2023 1:34 PM CDT OWAT BUN (Blood Urea Nitrogen), P 11 8 - 24 mg/dL 10/06/2023 1:34 PM CDT OWAT Creatinine 0.78 0.74 - 1.35 mg/dL 10/06/2023 1:34 PM CDT OWAT Estimated GFR (eGFR) >90 >=60 mL/min/BS A 10/06/2023 1:34 PM CDT OWAT Comment: Estimated GFR calculated using the 2020 CKD_EPI creatinine equation. Calcium, Total, P 8.7(L) 8.8 - 10.2 mg/dL 10/06/2023 1:34 PM CDT OWAT Glucose, P 94 70 - 140 mg/dL 10/06/2023 1:34 PM CDT OWAT Protein, Total, P 6.8 6.3 - 7.9 g/dL 10/06/2023 1:34 PM CDT OWAT Albumin, P 4.2 3.5 - 5.0 g/dL 10/06/2023 1:34 PM CDT OWAT Aspartate Aminotransferase (AST), P 22 8 - 48 U/L 10/06/2023 1:34 PM CDT OWAT Alkaline Phosphatase, P 76 40 - 129 U/L 10/06/2023 1:34 PM CDT OWAT Alanine Aminotransferase (ALT), P <5(L) 7 - 55 U/L 10/06/2023 2:41 PM CDT OWAT Bilirubin, Total, P 0.9 0.0 - 1.2 mg/dL 10/06/2023 1:34 PM CDT OWAT Blood (Blood, Venous) 10/06/2023 9:57 AM CDT 10/06/2023 1:05 PM CDT Sundeep Ibarra M.D. LAB BLOOD ADD-O N Final Result [facility] [address] [place] [address], [place] OWAT [facility] in [place] [address] [place] [address] from Last 3 Months or Most Recently Relevant to Health Maintenance Insurance [facility] MEDICARE Advance Directives For more information, please contact: [phone] Documents on File Type Date Recorded Patient Bark Spudder Expl anation Advance Directives 07/28/2023 11:08 AM Dania Reyes HCPOA/ADVOCATE/AGENT/R EPRESENTATIVE/SURROGAT E Healthcare Agents on File Name Relationship Healthcare Agent Relationshi p Communication Dania Reyes Daughter Health Care Agent Xu Reyes Son First Alternate Health Care Agent Care Teams Foxing Cutting Machine Operator Relationship Specialty Start Date End Date Sundeep Mccormack M.B.B.S., MVelia. [address] [place] [phone] PCP - General Family Medicine 06/25/22 [facility] 07/16/22
[2025-01-17 15:50] LABS: Troponin, Point-of-Care* 0.01 ng/ml (0.01-0.04)
[2025-01-17 15:57] LABS: Hematocrit* 40.1 % (37.0-53.0); Hemoglobin* 13.3 gm/dL (13.5-17.5); Immature Granulocytes Abs Auto 0.05 K/uL (0.00-0.30); Immature Granulocytes Pct Auto 0.5 %; Mean Corpuscular HGB Conc 33 gm/dL (32-36); Mean Corpuscular Hemoglobin 30 pg (26-34); Mean Corpuscular Volume 90 fL (80-100); RDW Coefficient of Variation % 13.0 % (11.5-15.5); Red Blood Count* 4.44 m/uL (4.30-5.90); White Blood Count* 9.82 K/uL (4.50-11.00)
[2025-01-17] MEDS: dilTIAZem 5 MG/ML inj 20 MG IVP (15:59)
[2025-01-17 16:10] LABS: Chloride* 94 mmol/L (96-114); Potassium* 3.5 mmol/L (3.6-5.1); Sodium* 129 mmol/L (135-149)
[2025-01-17 16:11] LABS: Lymphocytes Absolute Auto 1.10 K/uL (0.90-2.90); Slide Review Reflex No
[2025-01-17 16:13] LABS: Anion Gap 8 mEq/L (7-15); Blood Urea Nitrogen* 15 mg/dL (7-30); Calcium* 9.1 mg/dL (8.4-10.6); Carbon Dioxide* 27 mmol/L (20-32); Creatinine* 0.8 mg/dL (0.5-1.5); Est. Creatinine Clearance* 70.69; Estimated Glomerular Filt Rate 94 ml/min; Glucose* 103 mg/dL (60-115)
[2025-01-17 16:20] LABS: Appearance Urine Clear (Clear)
== END 2025-01-17 17:12 | disposition home or self-care (01) ==
PROVIDERS: Emergency Provider Emergency Medicine Emergency Medical Services; PCP Family Medicine
DX: I48.20 Chronic atrial fibrillation, unspecified (principal)
CPT/HCPCS: 36415; 80048; 81001; 83735; 84484; 85025; 93005; 96360; 99284; J7030

== ENCOUNTER 2025-03-10 19:05 | Emergency (ER) | payer MEDICARE, BC, SELFPAY ==
--- OUTSIDE RECORDS SUMMARY | 2025-01-24 09:00 | XMS_ITS | Encounter Summary ---
Author Organization [facility] Address [address] [place] [address] Care Team Providers Care Baker Helper Name Role Phone Sundeep Mccormack M.D. Primary Care [facility] Reason for Referral * Outpatient (Routine) - Closed Specialty Diagnoses / Procedures Referred By Contlili t Referred To Contact Diagnoses Atrial Fibrillation Unspecified (HCC) Sundeep Mccormack M.B.B.S., M.D. [address] [place] [address] Phone: tel: fax: [facility] Region Referral ID Status Reason Start Date Expiration Date Visits Re quested Visits Authorized [id number] Closed 01/24/2025 07/26/2026 1 1 Reason for Visit * Reason Comments Post Ed Visit Follow-up Encounter Details Date Type Department Care Team (Late st Contact Info) Description 01/24/2025 10:00 AM CDT Office Visit Department of Family Medicine, [facility], in [place], [place] [address] [place] [address] Sundeep Mccormack M.B.B.S., M.D. [address] [place] [address] [place] [phone] Atrial Fibrillation Unspecified (HCC) (Primary Dx); Parkinsonism Unspecified (HCC); History Of Falling; Ectasia Thoracic Aortic Social History Tobacco Use Types Packs/Day Years Used Date Smoking Tobacco: Never Smokeless Tobacco: Never Tobacco Cessation:Counseling Given: Not Answered Alcohol Use Standard Drinks/Week Comments Not Currently 0 (1 standard drink = 0.6 oz pur e alcohol) [facility] Utilities Answer Date Recorded In the past 12 months has e electric, gas, oil, or water [employer] threatened to shut off services in your [...] your living situation today? I have a [facility] place to live 08/06/2024 Education Answer Date Recorded What is the highest level of school you have completed or the highest degree you have received? Associate degree: occupational, technical, or vocational program 06/01/2020 Sex and Gender Information Value Date Recorded Sex Assigned at Male 04/10/2018 7:35 PM LUMBER CARRIER OPERATOR Legal Sex Male 4:22 PM LUMBER CARRIER OPERATOR Gender Identity Male 04/10/2018 7:35 PM LUMBER CARRIER OPERATOR Sexual Orientation Straight 04/10/2018 7: 35 PM LUMBER CARRIER OPERATOR Occupation Industry Job Start Date Job End Date Retired Not on file Not on file Not on file documented as of this encounter Last Filed Vital Signs Vital Sign Reading Time Taken Comments Blood Pressure 156/61 01/24/2025 9:43 AM CDT Pulse 116 01/24/2025 9:43 AM CDT Temperature 36.6 C (97.9 F) 01/24/2025 9:42 AM CDT Respiratory Rate 20 01/24/2025 9:42 AM CDT Oxygen Saturation - - Inhaled Oxygen Concentration - - Weight 78 kg (172 lb 1.1 oz) 01/24/2025 9:42 AM CDT Height 185 cm (6' 0.84) 01/24/2025 9:42 AM CDT Body Mass Index 22.8 01/24/2025 9:42 AM CDT documented in this encounter Progress Notes * Sundeep Mccormack M.B.B.S., MVelia. - 01/24/2025 10:00 AM CDT DATE OF VISIT: 01/24/2025 SUBJECTIVE CHIEF COMPLAINT / REASON FOR VISIT Francis Reyes is a 74 y.o. male who presents for evaluation of Post Ed Visit Follow-up. The patient verbally consented to an audio recording of their visit to assist with the completion of documentation. History of Present Illness Francis Reyes is a 74 year old male with atrial fibrillation and Parkinson's disease who presents for follow-up after an emergency room visit for heart-related symptoms. He is accompanied by his daughter, who is also his primary caregiver. Last week, he experienced chest pressure, prompting an emergency department visit. An EKG was performed, which showed atrial fibrillation with a high and irregular heart rate. He received IV diltiazem, which effectively controlled his heart rate, and he was discharged feeling improved. Since the ER visit, he has not had further episodes of tachycardia or chest pressure. His daughter,a nurse, monitors him closely, checking in during her work breaks to ensure he remains symptom-free. He attended a Medicare wellness visit the day after his ER visit, during which blood work was drawn. He generally feels well since the ER visit. He has a history of atrial fibrillation and is on Eliquis, reduced to 2.5 mg due to previous gastrointestinal issues with a higher dose. No bleeding issues have been reported since the dose adjustment. He is also on metoprolol, which was increased to 100 mg either this year or last year, and Crestor 5 mg. He has Parkinson's disease, diagnosed 12 years ago, and is on Sinemet extended release, taking two tablets three times a day. His daughter manages his medication schedule to ensure compliance. He experiences tremors, which worsen with nervousness, but has not had any falls or near falls recently. He reports his feet feeling heavy and sometimes getting tangled, but he has not sustained any injuries from falls. His shoes appear too large. He does not currently use a cane or walker. He is not driving anymore. OBJECTIVE VITAL SIGNS BP 156/61 (BP Location: Left arm, Patient Position: Sitting, Cuff Size: Large) Pulse (!) 116 Temp 36.6 ??C (Temporal) Resp 20 Ht 185 cm Wt 78 kg BMI 22.80 kg/m?? Physical Exam Vitals reviewed. Constitutional Appearance: Normal appearance. HENT Head: Normocephalic and atraumatic. Cardiovascular Rate and Rhythm: Tachycardia present. Rhythm irregular. Pulmonary Effort: Pulmonary effort is normal. No respiratory distress. Breath sounds: No wheezing. Neurological Mental Status: He is alert and oriented to person, place, and time. Mental status is at baseline. Comments: Coarse resting tremors noted. Physical Exam NEUROLOGICAL: Normal gait and core strength. ASSESSMENT/ PLAN Atrial Fibrillation Unspecified (HCC) Recent episode of atrial fibrillation with rapid ventricular response, heart rate in the 120s, and irregular rhythm. Experienced chest pressure, prompting an ER visit. EKG showed no acute changes. Treated with IV diltiazem in the ER, which improved symptoms. Currently asymptomatic with no recent episodes of racing heart or chest pressure. Echocardiogram scheduled for June to accommodate travel concerns. - Increase metoprolol dose to 150 mg. Instruct to split current pills to achieve this dose. - Schedule follow-up appointment for February 19 to monitor blood pressure, heart rate, and checkfor symptoms of lightheadedness or dizziness. - Schedule echocardiogram for June. Orders: metoprolol succinate (Toprol XL) 50 mg 24 hr tablet; Take 3 tablets (150 mg total) by mouth daily. Primary Care nurse visit (clinic) - [facility]; BP check; BP check w/ education (RN); Future Parkinsonism Unspecified (HCC) Long-standing Parkinsonism for 12 years, currently managed with Sinemet. Experiences tremors, exacerbated by nervousness. Current medication regimen includes extended-release Sinemet three times daily. No recent falls reported, but experiences feet feeling heavy and occasional near falls. Discussedthe potential benefit of using a cane for stability, especially during longer walks. - Continue current Sinemet regimen. - Consider use of a cane for stability, especially during longer walks. Discussed insurance coverage for a cane if needed. - Schedule follow-up with neurology if issues arise. Orders: carbidopa-levodopa (Sinemet CR) 50-200 mg per ER tablet; Take 2 tablets by mouth 3 (three) times a day. Take at 7-8am, 2pm and 7pm. History Of Falling No recent falls reported, but experiences feet feeling heavy and occasional near falls. Shoes appear too large, increasing fall risk. On Eliquis, which increases bleeding risk if a fall occurs. Discussed the importance of proper footwear to reduce fall risk. - Emphasize the importance of proper footwear to reduce fall risk. - Consider use of a cane for stability, especially during longer walks. Discussed insurance coverage for a cane if needed. Ectasia Thoracic Aortic Remained stable. Follow-up echocardiogram scheduled for next year. General Health Maintenance On multiple medications including Eliquis, metoprolol, Sinemet, and Crestor. No bleeding issues reported with Eliquis since dose adjustment. Medication regimen is well-organized to ensure compliance.Discussed the convenience of 90-day supplies for Crestor and Sinemet. - Refill Crestor and Sinemet for 90-day supply to improve convenience. - Ensure continued compliance with medication regimen. documented in this encounter Miscellaneous Notes * Assessment & Plan Note - Sundeep Mccormack M.B.B.S., M.D. - 01/24/2025 10:00 AM CDTAssociated Problem(s): Ectasia Thoracic Aortic Remained stable. Follow-up echocardiogram scheduled for next year. General Health Maintenance On multiple medications including Eliquis, metoprolol, Sinemet, and Crestor. No bleeding issues reported with Eliquis since dose adjustment. Medication regimen is well-organized to ensure compliance.Discussed the convenience of 90-day supplies for Crestor and Sinemet. - Refill Crestor and Sinemet for 90-day supply to improve convenience. - Ensure continued compliance with medication regimen. * Assessment & Plan Note - Sundeep Mccormack M.B.B.S., M.D. - 01/24/2025 10:00 AM CDTAssociated Problem(s): History Of Falling No recent falls reported, but experiences feet feeling heavy and occasional near falls. Shoes appear too large, increasing fall risk. On Eliquis, which increases bleeding risk if a fall occurs. Discussed the importance of proper footwear to reduce fall risk. - Emphasize the importance of proper footwear to reduce fall risk. - Consider use of a cane for stability, especially during longer walks. Discussed insurance coverage for a cane if needed. * Assessment & Plan Note - Sundeep Mccormack M.B.B.S., M.D. - 01/24/2025 10:00 AM CDTAssociated Problem(s): Parkinsonism Unspecified (HCC) Long-standing Parkinsonism for 12 years, currently managed with Sinemet. Experiences tremors, exacerbated by nervousness. Current medication regimen includes extended-release Sinemet three times daily. No recent falls reported, but experiences feet feeling heavy and occasional near falls. Discussedthe potential benefit of using a cane for stability, especially during longer walks. - Continue current Sinemet regimen. - Consider use of a cane for stability, especially during longer walks. Discussed insurance coverage for a cane if needed. - Schedule follow-up with neurology if issues arise. Orders: carbidopa-levodopa (Sinemet CR) 50-200 mg per ER tablet; Take 2 tablets by mouth 3 (three) times a day. Take at 7-8am, 2pm and 7pm. * Assessment & Plan Note - Sundeep Mccormack M.B.B.S., M.D. - 01/24/2025 10:00 AM CDTAssociated Problem(s): Atrial Fibrillation Unspecified (HCC) Recent episode of atrial fibrillation with rapid ventricular response, heart rate in the 120s, and irregular rhythm. Experienced chest pressure, prompting an ER visit. EKG showed no acute changes. Treated with IV diltiazem in the ER, which improved symptoms. Currently asymptomatic with no recent episodes of racing heart or chest pressure. Echocardiogram scheduled for June to accommodate travel concerns. - Increase metoprolol dose to 150 mg. Instruct to split current pills to achieve this dose. - Schedule follow-up appointment for February 19 to monitor blood pressure, heart rate, and checkfor symptoms of lightheadedness or dizziness. - Schedule echocardiogram for June. Orders: metoprolol succinate (Toprol XL) 50 mg 24 hr tablet; Take 3 tablets (150 mg total) by mouth daily. Primary Care nurse visit (clinic) - [facility]; BP check; BP check w/ education (RN); Future documented in this encounter Plan of Treatment Upcoming Encounters Date Type Department Care Team (Late st Contact Info) Description 05/31/2025 9:45 AM LUMBER CARRIER OPERATOR Telemedicine Department of Neurology in [place], [place] [address] [place] [phone] Luca Santizo M.D. [address] [place] [address] Scheduled Referrals Name Type Priority Associated Diagnoses Orde r Schedule Primary Care nurse visit (clinic) - [facility] Region; BP check; BP check w/ education (RN) Outpatient Referral Routine Atrial Fibrillation Unspecified (HCC) Expected: 02/19/2025, Expires: 04/26/2026 documented as of this encounter Visit Diagnoses Diagnosis Atrial Fibrillation Unspecified (HCC)- Primary Parkinsonism Unspecified (HCC) History Of Falling Ectasia Thoracic Aortic documented in this encounter Additional Health Concerns Assessment Noted Time PHQ-9 Depression Total Score: 0 03/11/20 15 3:49 PM LUMBER CARRIER OPERATOR A fall risk assessment has been complete d for the patient 01/18/2025 10:10 AM CDT documented as of this encounter Care Teams Baker Helper Relationship Specialty Start Date End Date Sundeep Mccormack M.B.B.S., M.D. [address] [place] [phone] PCP - General Family Medicine 06/25/22 [facility] 07/16/22 documented as of this encounter
--- OUTSIDE RECORDS SUMMARY | 2025-02-19 10:00 | XMS_ITS | Encounter Summary ---
Author Organization [facility] Address [address] [place] [address] Care Team Providers Care Plumbing Service Technician Name Role Phone Sundeep Mccormack M.D. Primary Care [facility] Reason for Visit * Reason Comments Blood Pressure Check Per order of Dr. Dwayne corona * Outpatient (Routine) - Closed Specialty Diagnoses / Procedures Referred By Luis Eduardo lind Referred To Contact Diagnoses Atrial Fibrillation Unspecified (HCC) Sundeep Mccormack M.B.BJpSYu [place] [address] [place] [address] Phone: tel: fax: [facility] Region Referral ID Status Reason Start Date Expiration Date Visits Re quested Visits Authorized [id number] Closed 01/24/2025 07/26/2026 1 1 Encounter Details Date Type Department Care Team (Late st Contact Info) Description 02/19/2025 10:00 AM PLASTER MECHANIC Nurse Only Department of Family Medicine, [facility], in [place], [place] [address] [place] [address] Sundeep Mccormack M.B.BJpSYu [place] [address] [place] [address] Liliana Whittington R.N. [address] [place] [address] Blood Pressure Check (Per order of Dr. Mccormack) Social History Tobacco Use Types Packs/Day Years Used Date Smoking Tobacco: Never Smokeless Tobacco: Never Alcohol Use Standard Drinks/Week Comments Not Currently 0 (1 standard drink = 0.6 oz pur e alcohol) [facility] Utilities Answer Date Recorded In the past 12 months has e [employer], gas, oil, or water [employer] threatened to shut off services in your [...] your living situation today? I have a [facility] place to live 08/06/2024 Education Answer Date Recorded What is the highest level of school you have completed or the highest degree you have received? Associate degree: occupational, technical, or vocational program 06/01/2020 Sex and Gender Information Value Date Recorded Sex Assigned at Male 04/10/2018 7:35 PM PLASTER MECHANIC Legal Sex Male 4:22 PM PLASTER MECHANIC Gender Identity Male 04/10/2018 7:35 PM PLASTER MECHANIC Sexual Orientation Straight 04/10/2018 7: 35 PM PLASTER MECHANIC Occupation Industry Job Start Date Job End Date Retired Not on file Not on file Not on file documented as of this encounter Last Filed Vital Signs Vital Sign Reading Time Taken Comments Blood Pressure 152/64 02/19/2025 9:56 AM PLASTER MECHANIC man ual cuff Pulse 92 02/19/2025 9:56 AM PLASTER MECHANIC Temperature - - Respiratory Rate 16 02/19/2025 9:39 AM PLASTER MECHANIC Oxygen Saturation - - Inhaled Oxygen Concentration - - Weight - - Height - - Body Mass Index - - documented in this encounter Progress Notes * Liliana Whittington R.N. - 02/19/2025 10:00 AM CST REASON FOR VISIT Nurse Blood Pressure Check Known history of Hypertension Today's visit is facilitated in clinic. SUBJECTIVE/EVALUATION Francis presents today for a blood pressure check, per follow-up recommendations from Fred Galarza M.D. at last visit on 01/24/25. At that time, the blood pressure management plan of care included: Nurse Visit for follow-up BP andRN education as needed/indicated. Blood Pressure symptoms: HTN Symptoms: The patient reports no acute symptoms of hypertension SOCIAL HISTORY AND SELF-CARE Medication Compliance: has been taking medications as prescribed Healthy Diet Practices: 2 cups of coffee per day Exercise: occasionally Tobacco Use History[1] reports that he does not currently use alcohol. Current Stressors: The patient reports recent stress and/or lifestyle changes possibly contributingto worsening of symptoms, including increased anxiety due to health. Self-care goal(s): discussed ways to decrease anxiety. Message to Dr. Mccormack inquiring about medication for anxiety. Home Blood Pressure Monitor Has a cuff at home, but has not been monitoring at home. Allergies[2] Current Medications[3] VITAL SIGNS are measured by automated device, average of 3 readings at today's visit Vitals: 02/19/25 0939 02/19/25 0946 02/19/25 0956 BP: (!) 177/71 (!) 170/74 152/64 BP Location: Left arm Left arm Left arm Patient Position: Sitting Sitting Sitting Cuff Size: Regular Regular Regular Pulse: 90 (!) 111 92 Resp: 16 RECENT LAB RESULTS No results found for this or any previous visit (from the past 24 hours). PLAN OF CARE Education Provided Today? Yes, documented in Patient Education. Additional nurse notes: discussed relaxation techniques and inquiring about Anxiety medication. They will need refill of Metoprolol with dose is determined, currently using 100 mg tabs and cutting inhalf to do the 150 mg dose. Consulting Fred Galarza M.D. to advise on future plan of care. Portal message preferred. and Okay to leave detailed message at the following number(s): [phone] Patient's preferred pharmacy verified as [id number] [address] Thank you, Liliana Whittington R.N. [1] Social History Tobacco Use Smoking Status Never Smokeless Tobacco Never [2] Allergies Allergen Reactions Penicillins Other (see comments) [3] Current Outpatient Medications Medication Sig Dispense Refill apixaban (Eliquis) 2.5 mg tablet Take 1 tablet (2.5 mg total) by mouth 2 (two) times a day. 180 tablet 3 carbidopa-levodopa (Sinemet CR) 50-200 mg per ER tablet Take 2 tablets by mouth 3 (three) times a day. Take at 7-8am, 2pm and 7pm. 540 tablet 3 cholecalciferol (Vitamin D3) 50 mcg (2,000 Unit) tablet Take 50 mcg by mouth daily as needed (Supplement). Takes occasionally coenzyme Q10 10 mg capsule Take by mouth as needed. metoprolol succinate (Toprol XL) 50 mg 24 hr tablet Take 3 tablets (150 mg total) by mouth daily. MULTIVITAMIN ORAL Take 1 tablet by mouth daily as needed (Supplement). propylene glycoL (Systane Balance) 0.6 % ophthalmic solution Administer 1 drop into both eyes 4 (four) times a day as needed for dry eyes. rosuvastatin (Crestor) 5 mg tablet Take 1 tablet (5 mg total) by mouth daily. 90 tablet 3 No current facility-administered medications for this visit. TER MECHANIC TER MECHANIC documented in this encounter Plan of Treatment Upcoming Encounters Date Type Department Care Team (Late st Contact Info) Description 05/31/2025 9:45 AM PLASTER MECHANIC Telemedicine Department of Neurology in [place], [place] [address] [phone] Luca Santizo M.D. [address] [phone] documented as of this encounter Visit Diagnoses Diagnosis Elevated Blood Pressure- Primary documented in this encounter Additional Health Concerns Assessment Noted Time PHQ-9 Depression Total Score: 0 03/11/20 15 3:49 PM PLASTER MECHANIC A fall risk assessment has been complete d for the patient 01/18/2025 10:10 AM CDT documented as of this encounter Care Teams Plumbing Service Technician Relationship Specialty Start Date End Date Sundeep Mccormack M.B.BJpSJp, MVelia. [address] [place] [phone] PCP - General Family Medicine 06/25/22 [facility] 07/16/22 documented as of this encounter
--- OUTSIDE RECORDS SUMMARY | 2025-02-28 08:20 | XMS_ITS | Encounter Summary ---
Author Organization [facility] Address [address] [place] [address] Care Team Providers Care Marine Mechanic Name Role Phone Sundeep Mccormack M.D. Primary Care [facility] Reason for Referral * Outpatient (Routine) - Authorized Specialty Diagnoses / Procedures Referred By Contac t Referred To Contact Neurology Diagnoses Parkinsonism Unspecified (HCC) Sundeep Mccormack M.B.B.S., M.D. [address] [place] [phone] Phone: tel: fax: Luca Santizo M.D. [address] [phone] Phone: tel: fax: Referral ID Status Reason Start Date Expiration Date V isits Requested Visits Authorized [id number] Authorized 02/28/2025 08/30/2026 1 1 ED TECH Reason for Visit * Reason Comments Follow-up Follow up on medicat ions Encounter Details Date Type Department Care Team (Late st Contact Info) Description 02/28/2025 8:20 AM BIOMED TECH Office Visit Department of Family Medicine, [facility], in [place], [place] [address] [place] [phone] Sundeep Mccormack M.B.B.S., Alicja. [address] [place] [phone] Parkinsonism Unspecified (HCC) (Primary Dx); Atrial Fibrillation Unspecified (HCC) Social History Tobacco Use Types Packs/Day Years Used Date Smoking Tobacco: Never Smokeless Tobacco: Never Tobacco Cessation:Counseling Given: Not Answered Alcohol Use Standard Drinks/Week Comments Not Currently 0 (1 standard drink = 0.6 oz pur e alcohol) [facility] Utilities Answer Date Recorded In the past 12 months has e Artillery, gas, oil, or water Diurnal threatened to shut off services in your [...] your living situation today? I have a [facility] place to live 08/06/2024 Education Answer Date Recorded What is the highest level of school you have completed or the highest degree you have received? Associate degree: occupational, technical, or vocational program 06/01/2020 Sex and Gender Information Value Date Recorded Sex Assigned at Male 04/10/2018 7:35 PM BIOMED TECH Legal Sex Male 4:22 PM BIOMED TECH Gender Identity Male 04/10/2018 7:35 PM BIOMED TECH Sexual Orientation Straight 04/10/2018 7: 35 PM BIOMED TECH Occupation Industry Job Start Date Job End Date Retired Not on file Not on file Not on file documented as of this encounter Last Filed Vital Signs Vital Sign Reading Time Taken Comments Blood Pressure 102/56 02/28/2025 8:10 AM BIOMED TECH Pulse 85 02/28/2025 8:10 AM BIOMED TECH Temperature 36 C (96.8 F) 02/28/2025 8:10 AM BIOMED TECH Respiratory Rate 20 02/28/2025 8:10 AM BIOMED TECH Oxygen Saturation - - Inhaled Oxygen Concentration - - Weight 77.8 kg (171 lb 8.3 oz) 02/28/2025 8:10 A M BIOMED TECH Height 185 cm (6' 0.84) 02/28/2025 8:10 AM BIOMED TECH Body Mass Index 22.73 02/28/2025 8:10 AM BIOMED TECH documented in this encounter Progress Notes * Sundeep Mccormack M.B.B.S., M.D. - 02/28/2025 8:20 AM CST DATE OF VISIT: 02/28/2025 SUBJECTIVE CHIEF COMPLAINT / REASON FOR VISIT Francis Reyes is a 74 y.o. male who presents for evaluation of Follow- up (Follow up on medications ). The patient verbally consented to an audio recording of their visit to assist with the completion of documentation. History of Present Illness Francis Reyes is a 74 year old male with Parkinson's disease who presents with anxiety and blood pressure management. He is accompanied by his primary caregiver. He experiences anxiety related to his Parkinson's disease, particularly when his caregiver is at work and unable to respond to his calls. He is unsure about the specifics or frequency of his anxiety.He does not have significant worrying or sensible worries. He lives with his caregiver and brother,which provides some support. Blood pressure management is a concern. He is currently taking metoprolol, 150 mg daily, primarily for heart rate regulation. His blood pressure was noted to be low at 102/56, and he has experienced lightheadedness and dizziness. He is currently splitting 100 mg tablets to achieve the 150 mg dose. He has a history of Parkinson's disease. He sleeps well without nightmares but experiences hallucinations, seeing things that others do not. His caregiver notes that his tremors have not worsened recently. He has had cataract surgery in the past and is awaiting a procedure to remove a film on the back of his lens before obtaining new glasses. Current medications include metoprolol 150 mg daily and Sinemet for Parkinson's disease. His caregiver mentions that he might benefit from anxiety medication, similar to what she takes (Celexa), but at a lower dose. OBJECTIVE VITAL SIGNS BP 102/56 (BP Location: Left arm, Patient Position: Sitting, Cuff Size: Large) Pulse 85 Temp 36??C (Temporal) Resp 20 Ht 185 cm Wt 77.8 kg BMI 22.73 kg/m?? Physical Exam Constitutional Appearance: Normal appearance. HENT Head: Normocephalic and atraumatic. Cardiovascular Rate and Rhythm: Normal rate. Pulmonary Effort: Pulmonary effort is normal. Breath sounds: Normal breath sounds. Abdominal General: Abdomen is flat. Bowel sounds are normal. There is no distension. Neurological Mental Status: He is alert and oriented to person, place, and time. Gait: Gait abnormal. Physical Exam VITALS: BP- 102/56 ASSESSMENT/ PLAN Atrial Fibrillation Unspecified (HCC) Managed with metoprolol. Current dose is 150 mg daily, achieved by splitting 100 mg tablets. Blood pressure is low at 102/56 mmHg, but metoprolol is primarily for heart rate control. Adjusting the dose could increase heart rate, so monitoring is advised. - Continue metoprolol 150 mg daily. - Monitor blood pressure regularly. - Sent prescription for metoprolol 150 mg to pharmacy. Orders: metoprolol succinate (Toprol XL) 50 mg 24 hr tablet; Take 3 tablets (150 mg total) by mouth daily. Parkinsonism Unspecified (HCC) Parkinson's disease is advancing with associated anxiety and psychosis. He experiences visual hallucinations, possibly related to Parkinson's. Anxiety may not be routine, and the benefit of anxiety medication is uncertain. Celexa is considered for trial due to shared genetics with his daughter, who has been on it for many years. Neurology consultation is needed to assess progression and potential treatment options. - Initiated Celexa 10 mg daily for trial. - Scheduled neurology consultation with Dr. Santizo. - Will consider virtual neurology visit if in-person visit is not feasible. Orders: Return to provider in another specialty; Future citalopram (CeleXA) 10 mg tablet; Take 1 tablet (10 mg total) by mouth daily. ED TECH documented in this encounter Miscellaneous Notes * Assessment & Plan Note - Sundeep Mccormack M.B.B.S., M.D. - 02/28/2025 8:20 AM CSTAssociated Problem(s): Atrial Fibrillation Unspecified (HCC) Managed with metoprolol. Current dose is 150 mg daily, achieved by splitting 100 mg tablets. Blood pressure is low at 102/56 mmHg, but metoprolol is primarily for heart rate control. Adjusting the dose could increase heart rate, so monitoring is advised. - Continue metoprolol 150 mg daily. - Monitor blood pressure regularly. - Sent prescription for metoprolol 150 mg to pharmacy. Orders: metoprolol succinate (Toprol XL) 50 mg 24 hr tablet; Take 3 tablets (150 mg total) by mouth daily. ED TECH * Assessment & Plan Note - Sundeep Mccormack M.B.B.S., M.D. - 02/28/2025 8:20 AM CSTAssociated Problem(s): Parkinsonism Unspecified (HCC) Parkinson's disease is advancing with associated anxiety and psychosis. He experiences visual hallucinations, possibly related to Parkinson's. Anxiety may not be routine, and the benefit of anxiety medication is uncertain. Celexa is considered for trial due to shared genetics with his daughter, who has been on it for many years. Neurology consultation is needed to assess progression and potential treatment options. - Initiated Celexa 10 mg daily for trial. - Scheduled neurology consultation with Dr. Santizo. - Will consider virtual neurology visit if in-person visit is not feasible. Orders: Return to provider in another specialty; Future citalopram (CeleXA) 10 mg tablet; Take 1 tablet (10 mg total) by mouth daily. ED TECH ED TECH documented in this encounter Plan of Treatment Upcoming Encounters Date Type Department Care Team (Late st Contact Info) Description 05/31/2025 9:45 AM BIOMED TECH Telemedicine Department of Neurology in [place], [place] [address] [phone] Luca Santizo M.D. [address] [phone] Scheduled Referrals Name Type Priority Associated Diagnoses Orde r Schedule Return to provider in another specialty Outpatient Referral Routine Parkinsonism Unspecified (HCC) Expected: 02/28/2025, Expires: 05/31/2026 documented as of this encounter Visit Diagnoses Diagnosis Parkinsonism Unspecified (HCC)- Primary Atrial Fibrillation Unspecified (HCC) documented in this encounter Additional Health Concerns Assessment Noted Time PHQ-9 Depression Total Score: 0 03/11/20 15 3:49 PM BIOMED TECH A fall risk assessment has been complete d for the patient 01/18/2025 10:10 AM CDT documented as of this encounter Care Teams Marine Mechanic Relationship Specialty Start Date End Date Sundeep Mccormack M.B.B.S., M.D. [address] [place] [phone] PCP - General Family Medicine 06/25/22 [facility] 07/16/22 documented as of this encounter
--- OUTSIDE RECORDS SUMMARY | 2025-03-10 19:07 | XMS_ITS | Clinical Summary ---
Author Organization Triage [facility] Address [address] [place] [address] Care Team Providers Care Senior Environmental Scientist Name Role Phone Sundeep Mccormack Primary Care Provider Allergies Active Allergy Reactions Criticality Noted Date Comments Penicillins *Unknown 02/15/2025 Medications propylene glycoL (Systane Balance) 0.6 % ophthalmic solutionIndicat ions:Bilateral dry eyes Instill one drop in each eye 4x/day for dry eyes 15 mL 2 02/15/2025 Active Encounters Date Type Department Care Team Description 02/25/2025 Telephone [facility] [address] [place] [phone] Vesna Espana, QUINN Questions (eye glass prescription) 02/15/2025 8:20 AM COMMERCIAL LINES ASSISTANT Office Visit [facility] [address] [place] [phone] Vesna Espana, QUINN Eye Exam (AUDIOLOGY TECHNICIAN/CEE) 02/14/2025 Travel from Last 3 Months Immunizations Immunization [...] for age 50+ (1 of 2) 2002 Medicare Wellness for age 65+ 2017 Pneumococcal series for age 50+ (2 of 2 - PPSV23, PCV20, or PCV21) 03/11/2018 01/14/2018 Tetanus booster 09/28/2021 09/29/2011 Influenza Vaccine (#1) 2024 12/23/2023 COVID-19 vaccine series ( season) 2025 12/10/2024, 12/23/2023, 01/19/2023, Additional history exists RSV vaccine for adults or Completed 03/17/2023 Hepatitis B series for 19+ Aged Out N o longer eligible based on patient's age to complete this topic Insurance [employer] BLUE MR PB ONLY Care Teams Senior Environmental Scientist Relationship Specialty Start Date End Date Sundeep Mccormack MBBS [address] [place] [address] [place] [phone] PCP - General Family Practice 12/23/23
--- OUTSIDE RECORDS SUMMARY | 2025-03-10 19:07 | XMS_ITS | Clinical Summary ---
Author Organization [facility] Address [address] [place] [address] Care Team Providers Care Pvc Monitor Name Role Phone Sundeep Mccormack M.D. Primary Care Tacos carvalho Source Comments Patient records contain information from all sites at [facility]. For routine questions regarding patient records, call [phone] during business hours, M-F 8:00 AM - 5:00 PM Central Time. Record requests for emergency care only can be directed to [phone] at any time.[facility] Allergies Active Allergy Reactions Criticality Noted Date Comments Penicillins Other (see comments) 09/29/2011 Medications * This document contains information received from the source organization and may not represent a complete record from that organization. MULTIVITAMIN ORAL Take 1 tablet by mouth daily as needed (Supplement). 09/29/19 12 Active coenzyme Q10 10 mg capsule Take by mouth as needed. Active cholecalciferol (Vitamin D3) 50 mcg (2,000 Unit) tablet Take 50 mcg by mouth daily as needed (Supplement). Takes occasionally Active apixaban (Eliquis) 2.5 mg tabletIndication s:Atrial Fibrillation Unspecified (HCC) Take 1 tablet (2.5 mg total) by mouth 2 (two) times a day. 180 tablet 3 10/14/19 25 026 Active rosuvastatin (Crestor) 5 mg tablet Take 1 tablet (5 mg total) by mouth daily. 90 tablet 3 01/25/20 25 026 Active carbidopa-levodo pa (Sinemet CR) 50-200 mg per ER tabletIndication s:Parkinsonism Unspecified (HCC) Take 2 tablets by mouth 3 (three) times a day. Take at 7-8am, 2pm and 7pm. 540 tablet 3 01/25/20 25 026 Active propylene glycoL (Systane Balance) 0.6 % ophthalmic solution Administer 1 drop into both eyes 4 (four) times a day as needed for dry eyes. 02/16/20 25 Active metoprolol succinate (Toprol XL) 50 mg 24 hr tabletIndication s:Atrial Fibrillation Unspecified (HCC) Take 3 tablets (150 mg total) by mouth daily. 270 tablet 3 02/29/20 25 026 Active citalopram (CeleXA) 10 mg tabletIndication s:Parkinsonism Unspecified (HCC) Take 1 tablet (10 mg total) by mouth daily. 30 tablet 1 02/29/20 25 Active metoprolol succinate (Toprol XL) 50 mg 24 hr tabletIndication s:Atrial Fibrillation Unspecified (HCC) Take 3 tablets (150 mg total) by mouth daily. 01/25/20 25 025 Discontin ued(Reord er) Active Problems Patient Care Coordination No te Formatting of this note migh t be different from the original. Authorization to disclose protected health information signed for Daughter Dania Reyes on 04/15/18. Problem Noted Date Diagnosed Date Ectasia Thoracic Aortic 01/24/2025 Assessment & Plan (01/24/2025 11:44 AM CDT): Remained stable. Follow-up echocardiogram scheduled for next year. General Health Maintenance On multiple medications including Eliquis, metoprolol, Sinemet, and Crestor. No bleeding issues reported with Eliquis since dose adjustment. Medication regimen is well-organized to ensure compliance. Discussed the convenience of 90-day supplies for Crestor and Sinemet. - Refill Crestor and Sinemet for 90-day supply to improve convenience. - Ensure continued compliance with medication regimen. Atrial Fibrillation Unspecified 08/09/2023 Assessment & Plan (02/28/2025 11:13 AM VIDEO TAPE DUPLICATOR): Managed with metoprolol. Current dose is 150 [...] tablets (150 mg total) by mouth daily. Assessment & Plan (01/24/2025 11:44 AM CDT): Recent episode of atrial fibrillation with rapid [...] to monitor blood pressure, heart rate, and check for symptoms of lightheadedness or dizziness. - Schedule echocardiogram for June. Orders: metoprolol succinate (Toprol XL) 50 mg 24 hr tablet; Take 3 tablets (150 mg total) by mouth daily. Primary Care nurse visit (clinic) - [facility]; BP check; BP check w/ education (RN); Future Assessment & Plan (10/14/2024 12:55 PM CDT): Orders: apixaban (Eliquis) 2.5 mg tablet; Take 1 tablet (2.5 mg total) by mouth 2 (two) times a day. metoprolol succinate (Toprol XL) 100 mg 24 hr tablet; Take 1 tablet (100 mg total) by mouth daily. Sodium; Future Potassium; Future Creatinine with Estimated GFR; Future History Of Falling 09/23/2022 Assessment & Plan (01/24/2025 11:44 AM CDT): No recent falls reported, but experiences feet [...] insurance coverage for a cane if needed. Dystonia 04/15/2018 Parkinsonism Unspecified 03/08/2013 Overview (08/25/2016): Parkinson's Disease, Primary* Assessment & Plan (02/28/2025 11:13 AM VIDEO TAPE DUPLICATOR): Parkinson's disease is advancing with associated anxiety [...] tablet (10 mg total) by mouth daily. Assessment & Plan (01/24/2025 11:44 AM CDT): Long-standing Parkinsonism for 12 years, currently managed with Sinemet. Experiences tremors, exacerbated by nervousness. Current medication regimen includes extended-release Sinemet three times daily. No recent falls reported, but experiences feet feeling heavy and occasional near falls. Discussed the potential benefit of using a cane for [...] day. Take at 7-8am, 2pm and 7pm. Encounters * This document contains information received from the source organization and may not represent a complete record from that organization. Date Type Department Care Team Description 02/28/2025 8:20 AM VIDEO TAPE DUPLICATOR Office Visit Department of [facility], in [address] [phone] Sundeep Mccormack M.B.B.S., M.D. Parkinsonism Unspecified (HCC) (Primary Dx); Atrial Fibrillation Unspecified (HCC) 02/19/2025 10:00 AM VIDEO TAPE DUPLICATOR Nurse Only Department of [facility], in [address] [phone] Sundeep Mccormack M.Guerrero.B.SYu Trammell Amanda L, RIsha Blood Pressure Check (Per order of Dr. Mccormack) 02/19/2025 Clinical Communication Department of [facility], in [address] [phone] Sundeep Mccormack M.B.B.SYu Trammell 01/24/2025 10:00 AM CDT Office Visit Department of [facility], in [address] [phone] Sundeep Mccormack M.BJpB.SYu Trammell Atrial Fibrillation Unspecified (HCC) (Primary Dx); Parkinsonism Unspecified (HCC); History Of Falling; Ectasia Thoracic Aortic 01/18/2025 10:15 AM CDT Office Visit Department of [facility], in [address] [phone] Sundeep Mccormack M.B.B.SYu Trammell Clair J, R.N. Annual Medicare Examination Return (Primary Dx) 01/18/2025 9:22 AM CDT - 01/18/2025 11:59 PM CDT Hospital Encounter Department of Laboratory Medicine in [address] [place] [address] David Morton M.D. Hyperlipidemia; Atrial Fibrillation Unspecified (HCC) Discharge Disposition: Home or Self Care 01/18/2025 Results Follow-Up Department of Cardiovascular Diseases in [place], [place] [address] [place] [address] David Morton M.D. Lipid Panel, Sodium, Potassium, Creatinine with Estimated GFR 01/18/2025 Clinical Communication Department of Family Medicine, [facility], in [place], [place] [address] [place] [phone] Carol Hui R.N. Annual Wellness Visit 01/10/2025 Orders Only [facility] MNT Sundeep Mccormack M.B.B.S., M.D. from Last 3 Months Immunizations Immunization Administration Dates Next Due Influenza TIV (IM) 12/10/2024,12/23/2023 Influenza high dose QV(65 years or older) [...] Relation Name Comments Arthritis Daughter 1 Dania joint problems Thyroid disease Daughter 1 Dania gallbladder problems Daughter 1 Dania Removed 08/2024 Thyroid disease Daughter 2 Essie gallbladder problems Daughter 2 Essie Removed 2004 Arthritis Daughter 3 Dania Heartburn Daughter 3 Dania Thyroid disease Daughter 3 Dania Cancer Father Min Lung Cancer/Mes othelioma Hypertension Father Min Other cancer Father Min Lung Cancer/Mes othelioma Memory loss Mother Suzi Asthma Sister 1 Cierra Arthritis Sister 2 Dinora Atrial fibrillation Sister 2 Dinora Hypertension Sister 2 Dinora Blindness Sister 3 Lisa legally blind Lung cancer Sister 3 Lisa Smoker Sister 3 Lisa Hernia Son Xu Surgery in 1991 Relation Name Status Comments Daughter 1 Dania Alive Daughter 2 Essie Alive Daughter 3 Dania Alive Father Min Alive Mother Suzi Sister 1 Cierra Alive Sister 2 Dinora Alive Sister 3 Lisa Son Xu Alive Social History Tobacco Use Types Packs/Day Years Used Date Smoking Tobacco: Never Smokeless Tobacco: Never Tobacco Cessation:Counseling Given: Not Answered Alcohol Use Standard Drinks/Week Comments Not Currently 0 (1 standard drink = 0.6 oz pur e alcohol) [facility] Utilities Answer Date Recorded In the past 12 months has e [employer], gas, oil, or water [employer] threatened to shut off services in your [...] your living situation today? I have a [facility] place to live 08/06/2024 Education Answer Date Recorded What is the highest level of school you have completed or the highest degree you have received? Associate degree: occupational, technical, or vocational program 06/01/2020 Sex and Gender Information Value Date Recorded Sex Assigned at Male 04/10/2018 7:35 PM VIDEO TAPE DUPLICATOR Legal Sex Male 4:22 PM VIDEO TAPE DUPLICATOR Gender Identity Male 04/10/2018 7:35 PM VIDEO TAPE DUPLICATOR Sexual Orientation Straight 04/10/2018 7: 35 PM VIDEO TAPE DUPLICATOR Occupation Industry Job Start Date Job End Date Retired Not on file Not on file Not on file Last Filed Vital Signs Vital Sign Reading Time Taken Comments Blood Pressure 102/56 02/28/2025 8:10 AM VIDEO TAPE DUPLICATOR Pulse 85 02/28/2025 8:10 AM VIDEO TAPE DUPLICATOR Temperature 36 C (96.8 F) 02/28/2025 8:10 AM VIDEO TAPE DUPLICATOR Respiratory Rate 20 02/28/2025 8:10 AM VIDEO TAPE DUPLICATOR Oxygen Saturation 100% 10/13/2024 10:11 AM CDT Inhaled Oxygen Concentration - - Weight 77.8 kg (171 lb 8.3 oz) 02/28/2025 8:10 A M VIDEO TAPE DUPLICATOR Height 185 cm (6' 0.84) 02/28/2025 8:10 AM VIDEO TAPE DUPLICATOR Body Mass Index 22.73 02/28/2025 8:10 AM VIDEO TAPE DUPLICATOR Plan of Treatment Upcoming Encounters Date Type Department Care Team (Late st Contact Info) Description 05/31/2025 9:45 AM VIDEO TAPE DUPLICATOR Telemedicine Department of Neurology in [place], [place] [address] [phone] Luca Santizo M.D. [address] [place] [address] Health Maintenance Due Date Last Done Comments CT Colonography 1952 Cologuard 1952 Colonoscopy 1952 Colorectal Cancer Screening 1952 FIT 1952 Hepatitis C Screening 1950 Zoster Vaccines (1 of 2) 2002 COVID-19 Vaccine ( season) 2025 12/10/2024, 12/23/2023, 01/19/2023, Additional history exists Visit: Medicare Annual Wellness 01/19/2026 01/18/2025 Visit: Annual, age 65+ (or Medicare and <65) 02/28/2026 02/28/2025 Fasting Glucose for Diabetes Screening 10/05/2026 10/06/2023, 07/16/2022, 10/16/2016, Additional history exists DTaP,Tdap,and Td Vaccines (3 - Td or Tdap) 09/29/2034 09/29/2024, 09/29/2011 RSV vaccine - (32-36 weeks) or 50+ years Completed 03/17/2023 Pneumococcal vaccine (50+ years) Completed 09/29/2024, 01/14/2018 Influenza Vaccine Completed 12/10/2024, , 01/19/2023, Additional history exists Depression Screening (Annual PHQ-2) Completed 01/11/2025 Fall Risk Screen (Annual) Completed 01/18/2025 IPV Vaccines Aged Out No longer eligi ble based on patient's age to complete this topic Medical Devices Implanted Type Area Hose Mender Device Identifier Shelf Expiration Date Model / Serial / Lot Ocular Lens Ocular Lens Bilateral : Eye Procedures Procedure Name Priority Date/Time Associated Diagnosis Comments CREATININE WITH EGFR, S/P Routine 01/18/2025 9:33 AM CDT Atrial Fibrillation Unspecified (HCC) POTASSIUM, S/P Routine 01/18/2025 9:33 AM CDT Atrial Fibrillation Unspecified (HCC) SODIUM, S/P Routine 01/18/2025 9:33 AM CDT Atrial Fibrillation Unspecified (HCC) LIPID PANEL, S Routine 01/18/2025 9:33 AM CDT Hyperlipidemia COMPREHENSIVE METABOLIC PANEL, S/P Routine 10/06/2023 9:57 AM CDT Atrial Fibrillation Unspecified (HCC) from Last 3 Months or Most Recently Relevant to Health Maintenance Results * Lipid Panel (01/18/2025 9:33 AM CDT) Triglycerides 83 mg/dL 01/18/2025 10:50 AM CDT OWAT Comment: ----REFERENCE VALUE---- Normal: <150 mg/dL Borderline High: 150-199 mg/dL High: 200-499 mg/dL Very High: > or =500 mg/dL Cholesterol, Total 122 mg/dL 2024 10:50 AM CDT OWAT Comment: ----REFERENCE VALUE---- Desirable: < 200 mg/dL Borderline High: 200 - 239 mg/dL High: > or = 240 mg/dL Cholesterol, LDL, Calculated 58 mg/dL 01/18/2025 10:50 AM CDT OWAT Comment: ----REFERENCE VALUE---- Desirable: <100 mg/dL Above Desirable: 100-129 mg/dL Borderline High: 130-159 mg/dL High: 160-189 mg/dL Very High: >=190 mg/dL ----ADDITIONAL INFORMATION---- LDL cholesterol calculated using the Madrigal/NIH equation. Cholesterol, HDL 48 >=40 mg/dL 01/18/2025 10:50 AM CDT OWAT Cholesterol, Non-HDL, Calculated 74 mg/dL 01/18/2025 10:50 AM CDT OWAT Comment: ----REFERENCE VALUE---- Desirable: <130 mg/dL Above Desirable: 130-159 mg/dL Borderline High: 160-189 mg/dL High: 190-219 mg/dL Very High: > or =220 mg/dL Fasting (8 HR or more) Unknown 01/18/2025 9:33 AM CDT OWAT Blood (Blood, Venous) 01/18/2025 9:33 AM CDT 01/18/2025 10:34 AM CDT us David Morton M.D. LAB BLOOD ADD-ON Final Res ult [facility] [address] [place] [address], [facility] OWAT [facility] in [place] [address] [place] [address] * Sodium (01/18/2025 9:33 AM CDT) Sodium, P 136 135 - 145 mmol/L 01/18/2025 10:50 AM CDT OWAT Blood (Blood, Venous) 01/18/2025 9:33 AM CDT 01/18/2025 10:34 AM CDT David Morton M.D. LAB BLOOD ADD-ON Final Res ult Performing Organization Address City/[facility]/ZIP Co de Phone Number [facility] [address] [place] [address], [facility] in [place] [address] [place] [address] * Potassium (01/18/2025 9:33 AM CDT) Potassium, P 4.1 3.6 - 5.2 mmol/L 01/18/2025 10:50 AM CDT OWAT Blood (Blood, Venous) 01/18/2025 9:33 AM CDT 01/18/2025 10:34 AM CDT David Morton M.D. LAB BLOOD ADD-ON Final Res ult Performing Organization Address City/[facility]/ZIP Co de Phone Number [facility] [address] [place] [address], [place] AT [facility] in [place] [address] [place] [address] * (ABNORMAL) Creatinine with Estimated GFR (01/18/2025 9:33 AM CDT) Creatinine 0.66(L) 0.74 - 1.35 mg/dL 01/18/2025 10:50 AM CDT OWAT Estimated GFR (eGFR) >90 >=60 mL/min/BSA 01/18/2025 10:50 AM CDT OWAT Comment: Estimated GFR calculated using the 2020 CKD_EPI creatinine equation. Blood (Blood, Venous) 01/18/2025 9:33 AM CDT 01/18/2025 10:34 AM CDT us David Morton M.D. LAB BLOOD ADD-ON Final Res ult [facility] [address] [place] [address], [facility] OWAT [facility] in [place] [address] [place] [address] * (ABNORMAL) Comprehensive Metabolic Panel (10/06/2023 9:57 [...] M.D. LAB BLOOD ADD-O N Final Result [facility] [address] [place] [address], [place] [facility] in [place] [address] [place] [address] from Last 3 Months or Most Recently Relevant to Health Maintenance Insurance [facility] MEDICARE Advance Directives For more information, please contact: [phone] Documents on File Type Date Recorded Patient Culture Manager Expl anation Advance Directives 07/28/2023 11:08 AM Dania Hawk Alejandra Reyes HCPOA/ADVOCATE/AGENT/R EPRESENTATIVE/SURROGAT E Healthcare Agents on File Name Relationship Healthcare Agent Relationshi p Communication Dania Reyes Daughter Health Care Agent Xu Reyes Son First Alternate Health Care Agent Care Teams Pvc Monitor Relationship Specialty Start Date End Date Sundeep Mccormack M.B.B.S. MVelia. [address] [place] [phone] PCP - General Family Medicine 06/25/22 [facility] 07/16/22
--- OUTSIDE RECORDS SUMMARY | 2025-03-10 19:07 | XMS_ITS | Encounter Summary ---
Author Organization [facility] Address [address] [place] [address] Care Team Providers Care Piano Mechanic Name Role Phone Sundeep Mccormack M.D. Primary Care Tacos carvalho Encounter Details Date Type Department Care Team (Latest Contact Info) Description 01/18/2025 Results Follow-Up Department of Cardiovascular Diseases in [place], [place] [address] [place] [phone] David Morton M.D. [address] [place] [phone] Lipid Panel, Sodium, Potassium, Creatinine with Estimated GFR Social History Tobacco Use Types Packs/Day Years Used Date Smoking Tobacco: Never Smokeless Tobacco: Never Alcohol Use Standard Drinks/Week Comments Not Currently 0 (1 standard drink = 0.6 oz pur e alcohol) [facility] Utilities Answer Date Recorded In the past 12 months has e [employer], gas, oil, or water [employer] threatened to shut off services in your [...] your living situation today? I have a [facility] place to live 08/06/2024 Education Answer Date Recorded What is the highest level of school you have completed or the highest degree you have received? Associate degree: occupational, technical, or vocational program 06/01/2020 Sex and Gender Information Value Date Recorded Sex Assigned at Male 04/10/2018 7:35 PM TREE PLANTER Legal Sex Male 4:22 PM TREE PLANTER Gender Identity Male 04/10/2018 7:35 PM TREE PLANTER Sexual Orientation Straight 04/10/2018 7: 35 PM TREE PLANTER Occupation Industry Job Start Date Job End Date Retired Not on file Not on file Not on file documented as of this encounter Plan of Treatment Upcoming Encounters Date Type Department Care Team (Late st Contact Info) Description 05/31/2025 9:45 AM TREE PLANTER Telemedicine Department of Neurology in [place], [place] [address] [place] [address] Luca Santizo M.D. [address] [place] [phone] documented as of this encounter Visit Diagnoses Not on filedocumented in this encounter Additional Health Concerns Assessment Noted Time PHQ-9 Depression Total Score: 0 03/11/20 15 3:49 PM TREE PLANTER A fall risk assessment has been complete d for the patient 01/18/2025 10:10 AM CDT documented as of this encounter Care Teams Piano Mechanic Relationship Specialty Start Date End Date Sundeep Mccormack M.B.BJpSJp, MVelia. [address] [place] [phone] PCP - General Family Medicine 06/25/22 [facility] 07/16/22 documented as of this encounter
--- OUTSIDE RECORDS SUMMARY | 2025-03-10 19:07 | XMS_ITS | Encounter Summary ---
Author Organization [facility] Address [address] [place] [address] Care Team Providers Care Cut Off Machine Operator Name Role Phone Sundeep Mccormack M.D. Primary Care Tacos carvalho Reason for Visit * Reason Onset Date Comments Annual Wellness Visit 01/18/2025 Encounter Details Date Type Department Care Team (Latest Contact Info) Description 01/18/2025 Clinical Communication Department of Family Medicine, [facility], in [place] [address] [place] [phone] Carol Hui R.N. Annual Wellness Visit Social History Tobacco Use Types Packs/Day Years Used Date Smoking Tobacco: Never Smokeless Tobacco: Never Alcohol Use Standard Drinks/Week Comments Not Currently 0 (1 standard drink = 0.6 oz pur e alcohol) [facility] Utilities Answer Date Recorded In the [...] your living situation today? I have a [facility] place to live 08/06/2024 Education Answer Date Recorded What is the highest level of school you have completed or the highest degree you have received? Associate degree: occupational, technical, or vocational program 06/01/2020 Sex and Gender Information Value Date Recorded Sex Assigned at Male 04/10/2018 7:35 PM HARNESS BRUSHER Legal Sex Male 4:22 PM HARNESS BRUSHER Gender Identity Male 04/10/2018 7:35 PM HARNESS BRUSHER Sexual Orientation Straight 04/10/2018 7: 35 PM HARNESS BRUSHER Occupation Industry Job Start Date Job End Date Retired Not on file Not on file Not on file documented as of this encounter Miscellaneous Notes * Telephone Encounter - Carol Hui R.N. - 01/18/2025 11:06 AM CDT Patient was here today for her Medicare Annual Wellness Visit: PHQ-2/9: 0 Mini-Cog: Observed without concerns Immunizations: Shingles - provided education and able to get at pharmacy if desired Colonoscopy: Never done - Declines AAA Screen: Unable to find if it has been completed Hep C Screen: Never done - Declines Advance Directive: On File, Accurate KATHERINE: Dania (daughter) Concerns: Patient was seen on 01/17/[address] [facility] ED, for Afib and chest pain. Scheduled Post ED follow-up on 01/24/25 with you. Elevated BP at time of visit but comparable to patient's most recent readings. documented in this encounter Plan of Treatment Upcoming Encounters Date Type Department Care Team (Late st Contact Info) Description 05/31/2025 9:45 AM HARNESS BRUSHER Telemedicine Department of Neurology in [place], [place] [address] [phone] Luca Santizo M.D. [address] [phone] documented as of this encounter Visit Diagnoses Not on filedocumented in this encounter Additional Health Concerns Assessment Noted Time PHQ-9 Depression Total Score: 0 03/11/20 15 3:49 PM HARNESS BRUSHER A fall risk assessment has been complete d for the patient 01/18/2025 10:10 AM CDT documented as of this encounter Care Teams Cut Off Machine Operator Relationship Specialty Start Date End Date Sundeep Mccormack M.B.BJpSJp, MVelia. [address] [place] [phone] PCP - General Family Medicine 06/25/22 [facility] 07/16/22 documented as of this encounter
--- OUTSIDE RECORDS SUMMARY | 2025-03-10 19:07 | XMS_ITS | Encounter Summary ---
Author Organization [facility] Address [address] [place] [id number] Care Team Providers Care Wire Galvanizer Name Role Phone Sundeep Mccormack M.D. Primary Care [facility] Encounter Details Date Type Department Care Team (Late st Contact Info) Description 02/19/2025 Clinical Communication Department of Family Medicine, [facility], in [place], [place] [address] [place] [address] Sundeep Mccormack M.B.B.S., [address] [place] [phone] Social History Tobacco Use Types Packs/Day Years Used Date Smoking Tobacco: Never Smokeless Tobacco: Never Alcohol Use Standard Drinks/Week Comments Not Currently 0 (1 standard drink = 0.6 oz pur e alcohol) [facility] Utilities Answer Date Recorded In the past 12 months has e [employer], gas, oil, or water [employer] threatened to shut off services in your [...] money to buy more. Never true 08/07/19 Within the past 12 months, t he [...] your living situation today? I have a [facility] place to live 08/06/2024 Education Answer Date Recorded What is the highest level of school you have completed or the highest degree you have received? Associate degree: occupational, technical, or vocational program 06/01/2020 Sex and Gender Information Value Date Recorded Sex Assigned at Male 04/10/2018 7:35 PM SHAREBROKER Legal Sex Male 4:22 PM SHAREBROKER Gender Identity Male 04/10/2018 7:35 PM SHAREBROKER Sexual Orientation Straight 04/10/2018 7: 35 PM SHAREBROKER Occupation Industry Job Start Date Job End Date Retired Not on file Not on file Not on file documented as of this encounter Miscellaneous Notes * Telephone Encounter - Liliana Whittington R.N. - 02/19/2025 10:05 AM SHAREBROKER Reason for communication: Nurse visit follow up - blood pressure is not in goal range. The following additional concerns identified at today's nurse visit: Daughter notes increased anxiety due to health concerns/parkinson's inquiring about possibly starting anxiety medication. BP Readings from Last 3 Encounters: 02/19/25 152/64 01/24/25 156/61 10/16/25 (!) 176/70 Initial readings via automated BP cuff were 177/71 (avg of 3) with HR of 90 (initially palpated a regular rhythm, noting only a couple softer beats), recheck via automated cuff was 170/74 with HR of 111. Re-palpated pulse and rhythm was irregular. Recheck done via manual cuff and BP was 152/64, HR 92. Please see the Nurse Visit notes for today's visit for additional information. and Please provide recommendations to help patient's blood pressure move into goal. EBROKER documented in this encounter Plan of Treatment Upcoming Encounters Date Type Department Care Team (Late st Contact Info) Description 05/31/2025 9:45 AM SHAREBROKER Telemedicine Department of Neurology in [place], [place] [address] [phone] Luca Santizo M.D. [address] [phone] documented as of this encounter Visit Diagnoses Not on filedocumented in this encounter Additional Health Concerns Assessment Noted Time PHQ-9 Depression Total Score: 0 03/11/20 15 3:49 PM SHAREBROKER A fall risk assessment has been complete d for the patient 01/18/2025 10:10 AM CDT documented as of this encounter Care Teams Wire Galvanizer Relationship Specialty Start Date End Date Sundeep Mccormack M.B.BJpSJp, M.David. [address] [place] [address] [place] [phone] PCP - General Family Medicine 06/25/22 [facility] 07/16/22 documented as of this encounter
[2025-03-10 19:22] VITALS: BP 112/64; PULSE 98; RESP 16; TEMP 36.6; O2SAT 98; BMI 21.5
--- NOTE | 2025-03-10 20:14 | ED_ITS ---
HPI - Fall General Time Seen by Provider: 20:14 Date Seen: 03/10/25 Chief Complaint: Fall/Minor Trauma Stated Complaint: Fall, R hip injury Time Seen by Provider: 03/10/25 20:13 Source: patient Mode of arrival: ambulatory History of Present Illness HPI Narrative: Francis is a 74 yo male who has a past medical history of Parkinson's, atrial fibrillation on Eliquis who presents to the ED for evaluation of a fall. Patient presents tonight with his daughter, reports that earlier this evening they went out to get some groceries, there caring pink groceries when he accidentally lost his balance (which is not unusual due to his Parkinson's) and he fell backwards onto his right side down a flight of stairs. Patient did not lose consciousness, does not think he hit his head. Patinet c/o of right side pain, right low back pain, right hip pain. Patient reports that he was able to give up after the fall however had patient's daughter brought him in for evaluation specially since he is on a blood thinner. Patient currently denies any headache, vision changes, neck pain, back pain, chest pain, shortness of breath. No other complaints. Related Data Home Medications ?Medication ?Instructions ?Recorded ?Confirmed apixaban 2.5 mg tablet (Eliquis) 2.5 mg PO BID 4 01/17/25 metoprolol succinate 100 mg 100 mg PO DAILY 12/03/23 1 tablet,extended release 24 hr carbidopa ER 50 mg-levodopa 200 mg tab PO 01/17/25 tablet,extended release rosuvastatin 5 mg tablet 5 mg PO DAILY 01/17/2501/17 Allergies Allergy/AdvReac Type Severity Reaction Status Date / Time Penicillins Allergy Verified 05/06/24 10:24 Review of Systems Narrative: Past medical history, past surgical history, medications, allergies, family history, and social history were reviewed with the patient. No additional pertinent items. A medically appropriate review of systems was performed with pertinent positives and negatives noted in HPI, all other systems negative. [facility] Medical History (Reviewed 05/06/24 @ 10:41 by Rosita Ragland, PATIENT REGISTRATION MANAGER, FLOW MATCH SOFA CUTTER) Parkinson's disease ?G20 - Parkinson's disease (ICD-10) Social History Smoking Status: Never smoker Do you use any of these nicotine containing products: None Second hand tobacco smoke exposure: No How often do you have a drink containing alcohol: never How often do you have six or more drinks on one occasion: Never AUDIT-C Alcohol total score: 0 Non-prescribed substance use: denies use Exam Narrative: Exam Narrative: General: Afebrile, no acute distress HEENT: Normocephalic, atraumatic, conjunctiva normal. MMM Neck: non-tender, supple Cardio: regular rate. regular rhythm Resp: Normal work of breathing, no respiratory distress, lungs clear bilaterally, no wheezing, rhonchi, rales Chest/Back: no visual signs of trauma, no midline tenderness, no CVA tenderness Abdomen: soft, non distension, no tenderness, no peritoneal signs Neuro: alert and fully oriented. CN II-XII grossly intact. Normal strength and sensation in all extremities. Tremors baseline 2/2 to parkisons MSK: no deformities. Normal range of motion Integumentary/Skin: no rash visualized, normal color Psych: normal affect, normal behavior Const: Vital Signs, click to edit/add: Vital Signs - 24 hr 03/10/25 19:22 03/10/25 21:22 03/10/25 23:22 Temperature 97.8 F 97.8 F 97.8 F Pulse Rate [Pulse Oximeter] 98 90 85 Respiratory Rate 16 16 16 Blood Pressure [Ri ght Upper Arm] 112/64 115/74 121/70 Pulse Oximetry 98 98 98 Oxygen Delivery Me thod Room Air Room Air Room Air 03/10/25 23:23 Temperature 97.8 F Pulse Rate [Pulse Oximeter] 85 Respiratory Rate 16 Blood Pressure [Ri ght Upper Arm] 121/70 Pulse Oximetry Oxygen Delivery Me thod Course Vital Signs Vital signs: Initial Vital Signs Temperature 97.8 F 03/10/25 19:22 Temperature Source Temporal Artery Scan 03/10/25 19:22 Pulse Rate 98 03/10/25 19:22 Respiratory Rate 16 03/10/25 19:22 Blood Pressure 112/64 03/10/25 19:22 Blood Pressure Mean 80 03/10/25 19:22 Blood Pressure Position Sitting 03/10/25 19:22 Pulse Oximetry 98 03/10/25 19:22 Oxygen Delivery Method Room Air 03/10/25 19:22 Vital Signs Temperature 97.8 F 03/10/25 19:22 Pulse Rate 98 03/10/25 19:22 Respiratory Rate 16 03/10/25 19:22 Blood Pressure 112/64 03/10/25 19:22 Pulse Oximetry 98 03/10/25 19:22 Oxygen Delivery Method Room Air 03/10/25 19:22 Temperature 97.8 F 03/10/25 23:23 Pulse Rate 85 03/10/25 23:23 Respiratory Rate 16 03/10/25 23:23 Blood Pressure 121/70 03/10/25 23:23 Pulse Oximetry 98 03/10/25 23:22 Oxygen Delivery Method Room Air 03/10/25 23:22 MDM - Fall MDM Narrative Medical decision making narrative: Francis is a 74 yo male who has a past medical history of Parkinson's , atrial fibrillation on chronic anticoagulation with Eliquis who presents to the ED for evaluation of a fall. Upon arrival patient is nontoxic appearing, afebrile, in mild distress secondary to pain. Patient hemodynamically stable vital signs within normal limits. Patient here with fall, does not believe he hit his head or lost consciousness however patient is not 100% certain, and did fall down multiple stairs. Given patient is on chronic anticoagulation I discussed with patient and family and will proceed with CT imaging as well as comprehensive labs to check creatinine, hemoglobin. Differential diagnosis includes but is not limited to contusion versus hematoma versus intra-abdominal bleeding versus rib contusion versus musculoskeletal versus hip fracture among others. Comprehensive labs remarkable for white blood cell count 7.9, hemoglobin 12.4, no acute metabolic electrolyte - sodium 129, chloride 92 however per chart review these appear to be patient's baseline. I personally reviewed interpreted CT imaging. CT the head with with no acute intracranial abnormalities, CT cervical spine with no acute fracture, subluxation, CT of the chest/abdomen/pelvis with no acute intrathoracic or intra-abdominal traumatic findings, no evidence of active bleeding, or evidence of acute traumatic injury. There is an indeterminate partially calcified mass in the anterior mediastinum which could represent a seroma or thymic cyst. I discussed results with patient and recommend outpatient follow-up with her primary care provider for follow-up CT chest or MRI. Patient with bilateral nonobstructing nephrolithiasis. No other acute findings. On re-evaluation patient continue the resting comfortably, no distress while at rest. Patient here with fall, suspect likely hip contusion complicated by being on chronic anticoagulation. Patient is able to ambulate at his baseline and feels comfortable discharge home with his daughter. Patient declined anything for pain. Plan for discharge, daughter range follow-up appointment on Wednesday. Encourage close outpatient follow-up and strict return precautions discussed. Patient and daughter understand agrees the plan. Medical Records Attestation: I reviewed the patient's medical records. Lab Data Attestation: I reviewed the patient's lab results. Labs: Lab Results 03/10/25 Range/Units 20:30 WBC 7.98 (4.50-11.00) K/uL RBC 4.13 L (4.30-5.90) m/uL Hgb 12.4 L (13.5-17.5) gm/dL Hct 37.1 (37.0-53.0) % MCV 90 (80-100) fL MCH 30 (26-34) pg MCHC 33 (32-36) gm/dL RDW Coeff of Chris 13.2 (11.5-15.5) % Plt Count 129 L (140-440) K/uL Neut % (Auto) 76.3 H (42.0-72.0) % Lymph % (Auto) 11.7 L (20-44) % [place] % (Auto) 9.8 (0.0-11.0) % Eos % (Auto) 1.5 (0.0-7.0) % Baso % (Auto) 0.3 (0.0-3.0) % Neut # (Auto) 6.10 (1.7-7.0) K/uL Lymph # (Auto) 0.90 (0.90-2.90) K/uL Berkshire # (Auto) 0.80 (0.00-0.90) K/UL Eos # (Auto) 0.12 (0.00-0.50) K/uL Baso # (Auto) 0.02 (0.00-0.30) K/uL Abs Immat Gran (auto) 0.03 (0.00-0.30) K/uL Imm/Tot Granulo (auto) 0.4 % Sodium 129 L (135-149) mmol/L Potassium 3.8 (3.6-5.1) mmol/L Chloride 92 L (96-114) mmol/L Carbon Dioxide 24 (20-32) mmol/L Anion Gap 13 (7-15) mEq/L BUN 14 (7-30) mg/dL Creatinine 0.7 (0.5-1.5) mg/dL Estimated Creat Clear 73.68 Estimated GFR 98 ml/min Glucose 111 (60-115) mg/dL Calcium 8.8 (8.4-10.6) mg/dL Total Bilirubin 1.1 (0.1-1.5) mg/dL AST 29 (12-35) U/L ALT 11 (4-50) U/L Alkaline Phosphatase 85 (40-150) U/L Total Protein 6.8 (6.0-8.3) g/dL Albumin 4.1 (3.3-5.0) g/dL POC Creatinine 0.9 (0.6-1.3) mg/dl Imaging Data CT scan - head: Attestation: I have reviewed the pertinent imaging results. Radiologist's impression: Patient: Francis Reyes MR#: [id number] : 1950 Acct:[id number] Loc: ED Service Date: 03/10/[address]: Ordering Physician: Izabela Payne M.D. Date of Service: 03/10/25 Procedure(s): CT head/brain wo con Accession Number(s): [id number] cc: Izabela Payne M.D.; Sundeep Mccormack M.D.~ For Patients: As a result of the Century Cures Act, medical imaging exams and procedure reports are released immediately into your electronic medical record. You may view this report before your referring provider. If you have questions, please contact your health care provider. INDICATION: Fall. On blood thinners. TECHNIQUE: CT of the head without contrast. Coronal and sagittal reformats are included. COMPARISON: None. FINDINGS: No acute intracranial hemorrhage. No mass effect or midline shift. No hydrocephalus or extra-axial collections. Scattered white matter hypoattenuation, typical for chronic microvascular ischemic change. Mild to moderate generalized parenchymal volume loss. No acute osseous abnormalities. Mastoid air cells and paranasal sinuses are clear. Normal soft tissues. IMPRESSION: IMPRESSION: 1. No acute intracranial abnormalities. Please note that all CT scans at this facility use dose modulation, iterative reconstruction, and/or weight-based dosing when appropriate to reduce radiation dose to as low as reasonably achievable. Dictated by Jitendra Kaminski MD @ 03/10/2025 9:36:52 PM (Electronically Signed) CT cervical: Attestation: I have reviewed the pertinent imaging results. Radiologist's impression: Patient: Francis Reyes MR#: [id number] : 1950 Acct:[id number] Loc: ED Service Date: 03/10/[address]: Ordering Physician: Izabela Payne M.D. Date of Service: 03/10/25 Procedure(s): CT cervical spine wo con Accession Number(s): [id number] cc: Izabela Payne M.D.; Sundeep Mccormack M.D.~ For Patients: As a result of the Cures Act, medical imaging exams and procedure reports are released immediately into your electronic medical record. You may view this report before your referring provider. If you have questions, please contact your health care provider. INDICATION: Fall. Trauma. TECHNIQUE: CT of the cervical spine without contrast. Coronal and sagittal reformats are included. COMPARISON: None. FINDINGS: Fractures and other acute findings: None. Hardware: None. Spinal alignment: Normal cervical lordosis. Trace retrolisthesis C3-4. Significant cervical spondylosis: Advanced disc degeneration C4-5, C5-6 and C6-7. Disc osteophyte complexes C3-4/C4-5 with at least mild spinal canal stenosis. Multilevel uncovertebral and facet arthrosis with high-grade neural foraminal stenosis C3-4 on the right, C4-5 bilaterally, C5-6 bilaterally and C6-7 bilaterally. Paraspinal soft tissues and imaged lungs: Vascular calcifications carotid bulbs. IMPRESSION: 1. No acute fracture or traumatic malalignment of the cervical spine. Please note that all CT scans at this facility use dose modulation, iterative reconstruction, and/or weight-based dosing when appropriate to reduce radiation dose to as low as reasonably achievable. Dictated by Jitendra Kaminski MD @ 03/10/2025 9:41:13 PM (Electronically Signed) CT Chest/Ab/Pelvis: Attestation: I have reviewed the pertinent imaging results. Radiologist's impression: Patient: Francis Reyes MR#: [id number] : 1950 Acct:[id number] Loc: ED Service Date: 03/10/[address]: Ordering Physician: Izabela Payne M.D. Date of Service: 03/10/25 Procedure(s): CT chest abdomen pelv w con Accession Number(s): [id number] cc: Izabela Payne M.D.; Sundeep Mccormack M.D.~ For Patients: As a result of the Cures Act, medical imaging exams and procedure reports are released immediately into your electronic medical record. You may view this report before your referring provider. If you have questions, please contact your health care provider. INDICATION: Fall, right-sided pain. TECHNIQUE: CT chest, abdomen and pelvis acquired with 84 cc of Isovue 370 IV contrast. COMPARISON: None. FINDINGS: CHEST: Cardiovascular structures: Heart size is normal. Thoracic aorta and main pulmonary artery are normal in caliber. Mediastinum and shania: Indeterminate 2.3 x 1.5 cm partially calcified mass within the anterior mediastinum anterior to the ascending aorta (502/45). Lungs and pleura: Mild bilateral dependent atelectasis. No consolidation, suspicious nodule, pleural effusion, or pneumothorax. Chest wall and axilla: No mass or adenopathy. Bones: No acute fracture or dislocation. Several old posterior right-sided rib fractures. ABDOMEN AND PELVIS: Liver: Unremarkable. No sign of acute injury. Gallbladder and bile ducts: Unremarkable. Pancreas: Unremarkable. Spleen: Unremarkable. No sign of acute injury. Adrenal glands: Unremarkable. Kidneys: Bilateral nonobstructing nephroliths, the largest measuring 1.9 cm within the right kidney mid pole. No hydronephrosis or suspicious mass. GI tract: Diverticulosis without pericolonic inflammation. No obstruction. Normal appendix. Vascular structures: Normal caliber abdominal aorta with [id number] atherosclerotic calcification. Mesenteric arteries are patent. Lymph nodes: Unremarkable. Miscellaneous: Unremarkable. No free air or significant free fluid. Pelvic Organs: Mild prostatomegaly. Bones: No acute fracture or dislocation. IMPRESSION: 1. No evidence of acute traumatic injury within the chest, abdomen, or pelvis. 2. Indeterminate 2.3 x 1.5 cm partially calcified mass within the anterior mediastinum anterior to the ascending aorta. This could represent a thymoma/thymic cyst. Recommend MRI for further characterization or short interval follow-up chest CT in 3 months to evaluate for interval change. 3. Bilateral nonobstructing nephrolithiasis. Please note that all CT scans at this facility use dose modulation, iterative reconstruction, and/or weight-based dosing when appropriate to reduce radiation dose to as low as reasonably achievable. Dictated by Hernan Cross MD @ 03/10/2025 9:56:06 PM (Electronically Signed) Discharge Plan Discharge Clinical Impression: Fall, Acute pain of right hip, Chronic anticoagulation Patient Disposition: Home, Self-Care Condition: Stable Additional Instructions: Please follow-up with your primary care provider at your scheduled appointment this coming Wednesday. Please take Tylenol or ibuprofen as needed for pain. Please bear weight as tolerated. Your CT scan did demonstrate a possible Thyoma or thymic cyst. Please follow up for further evaluation/repeat imaging. Return to the emergency department if any worsening symptoms. It is a pleasure taking care of you today. We hope you feel better soon. Prescriptions: No Action metoprolol succinate 100 mg tablet extended release 24 hr 100 mg PO DAILY Eliquis 2.5 mg tablet 2.5 mg PO BID carbidopa-levodopa 50-200 mg tablet extended release PO rosuvastatin 5 mg tablet 5 mg PO DAILY Follow Up/Referrals: Sundeep Mccormack MD [Primary Care Provider, Family Practice] Stand Alone Forms: Poder[facility]iath Info Instructions
--- NOTE | 2025-03-10 20:27 | CRLHL7_ITS ---
For Patients: As a result of the Century Cures Act, medical imaging exams and procedure reports are released immediately into your electronic medical record. You may view this report before your referring provider. If you have questions, please contact your health care provider. INDICATION: Fall, right-sided pain. TECHNIQUE: CT chest, abdomen and pelvis acquired with 84 cc of Isovue 370 IV contrast. COMPARISON: None. FINDINGS: CHEST: Cardiovascular structures: Heart size is normal. Thoracic aorta and main pulmonary artery are normal in caliber. Mediastinum and shania: Indeterminate 2.3 x 1.5 cm partially calcified mass within the anterior mediastinum anterior to the ascending aorta (502/45). Lungs and pleura: Mild bilateral dependent atelectasis. No consolidation, suspicious nodule, pleural effusion, or pneumothorax. Chest wall and axilla: No mass or adenopathy. Bones: No acute fracture or dislocation. Several old posterior right-sided rib fractures. ABDOMEN AND PELVIS: Liver: Unremarkable. No sign of acute injury. Gallbladder and bile ducts: Unremarkable. Pancreas: Unremarkable. Spleen: Unremarkable. No sign of acute injury. Adrenal glands: Unremarkable. Kidneys: Bilateral nonobstructing nephroliths, the largest measuring 1.9 cm within the right kidney mid pole. No hydronephrosis or suspicious mass. GI tract: Diverticulosis without pericolonic inflammation. No obstruction. Normal appendix. Vascular structures: Normal caliber abdominal aorta with [id number] atherosclerotic calcification. Mesenteric arteries are patent. Lymph nodes: Unremarkable. Miscellaneous: Unremarkable. No free air or significant free fluid. Pelvic Organs: Mild prostatomegaly. Bones: No acute fracture or dislocation. IMPRESSION: 1. No evidence of acute traumatic injury within the chest, abdomen, or pelvis. 2. Indeterminate 2.3 x 1.5 cm partially calcified mass within the anterior mediastinum anterior to the ascending aorta. This could represent a thymoma/thymic cyst. Recommend MRI for further characterization or short interval follow-up chest CT in 3 months to evaluate for interval change. 3. Bilateral nonobstructing nephrolithiasis. Please note that all CT scans at this facility use dose modulation, iterative reconstruction, and/or weight-based dosing when appropriate to reduce radiation dose to as low as reasonably achievable. Dictated by Hernan Cross MD @ 03/10/2025 9:56:06 PM (Electronically Signed)
--- NOTE | 2025-03-10 20:27 | CRLHL7_ITS ---
For Patients: As a result of the Cures Act, medical imaging exams and procedure reports are released immediately into your electronic medical record. You may view this report before your referring provider. If you have questions, please contact your health care provider. INDICATION: Fall. Trauma. TECHNIQUE: CT of the cervical spine without contrast. Coronal and sagittal reformats are included. COMPARISON: None. FINDINGS: Fractures and other acute findings: None. Hardware: None. Spinal alignment: Normal cervical lordosis. Trace retrolisthesis C3-4. Significant cervical spondylosis: Advanced disc degeneration C4-5, C5-6 and C6-7. Disc osteophyte complexes C3-4/C4-5 with at least mild spinal canal stenosis. Multilevel uncovertebral and facet arthrosis with high-grade neural foraminal stenosis C3-4 on the right, C4-5 bilaterally, C5-6 bilaterally and C6-7 bilaterally. Paraspinal soft tissues and imaged lungs: Vascular calcifications carotid bulbs. IMPRESSION: 1. No acute fracture or traumatic malalignment of the cervical spine. Please note that all CT scans at this facility use dose modulation, iterative reconstruction, and/or weight-based dosing when appropriate to reduce radiation dose to as low as reasonably achievable. Dictated by Jitendra Kaminski MD @ 03/10/2025 9:41:13 PM (Electronically Signed)
--- NOTE | 2025-03-10 20:27 | CRLHL7_ITS ---
For Patients: As a result of the Century Cures Act, medical imaging exams and procedure reports are released immediately into your electronic medical record. You may view this report before your referring provider. If you have questions, please contact your health care provider. INDICATION: Fall. On blood thinners. TECHNIQUE: CT of the head without contrast. Coronal and sagittal reformats are included. COMPARISON: None. FINDINGS: No acute intracranial hemorrhage. No mass effect or midline shift. No hydrocephalus or extra-axial collections. Scattered white matter hypoattenuation, typical for chronic microvascular ischemic change. Mild to moderate generalized parenchymal volume loss. No acute osseous abnormalities. Mastoid air cells and paranasal sinuses are clear. Normal soft tissues. IMPRESSION: IMPRESSION: 1. No acute intracranial abnormalities. Please note that all CT scans at this facility use dose modulation, iterative reconstruction, and/or weight-based dosing when appropriate to reduce radiation dose to as low as reasonably achievable. Dictated by Jitendra Kaminski MD @ 03/10/2025 9:36:52 PM (Electronically Signed)
[2025-03-10 20:37] LABS: Creatinine, Point-of-Care* 0.9 mg/dl (0.6-1.3)
[2025-03-10 20:41] LABS: Hematocrit* 37.1 % (37.0-53.0); Hemoglobin* 12.4 gm/dL (13.5-17.5); Immature Granulocytes Abs Auto 0.03 K/uL (0.00-0.30); Immature Granulocytes Pct Auto 0.4 %; Lymphocytes Absolute Auto 0.90 K/uL (0.90-2.90); Mean Corpuscular HGB Conc 33 gm/dL (32-36); Mean Corpuscular Hemoglobin 30 pg (26-34); Mean Corpuscular Volume 90 fL (80-100); RDW Coefficient of Variation % 13.2 % (11.5-15.5); Red Blood Count* 4.13 m/uL (4.30-5.90); Slide Review Reflex No; White Blood Count* 7.98 K/uL (4.50-11.00)
[2025-03-10 20:56] LABS: Albumin* 4.1 g/dL (3.3-5.0); Chloride* 92 mmol/L (96-114); Potassium* 3.8 mmol/L (3.6-5.1); Sodium* 129 mmol/L (135-149)
[2025-03-10 20:59] LABS: Alanine Aminotransferase* 11 U/L (4-50); Alkaline Phosphatase* 85 U/L (40-150); Anion Gap 13 mEq/L (7-15); Aspartate Amino Transferase* 29 U/L (12-35); Bilirubin Total* 1.1 mg/dL (0.1-1.5); Blood Urea Nitrogen* 14 mg/dL (7-30); Calcium* 8.8 mg/dL (8.4-10.6); Carbon Dioxide* 24 mmol/L (20-32); Creatinine* 0.7 mg/dL (0.5-1.5); Est. Creatinine Clearance* 73.68; Estimated Glomerular Filt Rate 98 ml/min; Glucose* 111 mg/dL (60-115); Total Protein* 6.8 g/dL (6.0-8.3)
[2025-03-10 21:22] VITALS: BP 115/74; PULSE 90; RESP 16; TEMP 36.6; O2SAT 98
[2025-03-10 23:22] VITALS: BP 121/70; PULSE 85; RESP 16; TEMP 36.6; O2SAT 98
[2025-03-10 23:23] VITALS: BP 121/70; PULSE 85; RESP 16; TEMP 36.6
== END 2025-03-10 23:23 | disposition home or self-care (01) ==
PROVIDERS: Emergency Provider Emergency Medicine; PCP Family Medicine
DX: M25.551 Pain in right hip (principal); G20.C Parkinsonism, unspecified; I48.91 Unspecified atrial fibrillation; W10.9XXA Fall (on) (from) unspecified stairs and steps, initial encounter; Z79.01 Long term (current) use of anticoagulants
CPT/HCPCS: 36415; 70450; 71260; 72125; 74177; 80053; 82565; 85025; 99284; 99285; Q9967

== ENCOUNTER 2025-03-27 09:52 | Outpatient (CLI) | payer MEDICARE, BC, SELFPAY ==
--- NOTE | 2025-03-27 10:15 | CRLHL7_ITS ---
For Patients: As a result of the Century Cures Act, medical imaging exams and procedure reports are released immediately into your electronic medical record. You may view this report before your referring provider. If you have questions, please contact your health care provider. INDICATION: Mediastinal mass on prior CT TECHNIQUE: 1.5 T MRI of the chest was pre and postcontrast T1 weighted imaging; T2 weighted imaging; in and out of phase imaging. 15 mL Dotarem administered IV. COMPARISON: CT chest abdomen pelvis 03/10/2025 FINDINGS: Neck: No mass Heart: Normal in size. The thoracic aorta and main pulmonary artery are normal in caliber. Trace pericardial fluid. No pericardial effusion Mediastinum: T2 hyperintense cystic lesion in the anterior mediastinum with numerous thin internal septations measuring 1.3 x 1.8 cm (09/14). This enhances homogeneously, is T1 isointense, and without microscopic or macroscopic fat. Subtle peripheral calcifications are better assessed on prior CT. Lymph nodes: Enlarged precarinal lymph node measuring 1.2 cm () Lungs: No large pulmonary nodule, consolidation, or gross interstitial abnormality. Trace right pleural effusion. Soft tissues: No mass Musculoskeletal: Asymmetric enhancement of a few posterior right ribs at the costovertebral junction. No soft tissue mass. Cystic degenerative change of the bilateral glenohumeral joints, incompletely imaged Abdomen: The imaged upper abdomen is unremarkable IMPRESSION: 1. Cystic anterior mediastinal lesion measuring 1.8 cm is indeterminate although differential considerations include thymic cyst, cystic thymoma, germ-cell tumor, or lymphoma. Lymphangioma or foregut cyst are also possible, although less likely given the homogeneous enhancement. Recommend consultation with Surgery for further management. Consider correlation with tumor markers and/or PET-CT 2. Enlarged precarinal lymph node is nonspecific. 3. Asymmetric enhancement of a few posterior right ribs at the costovertebral junction. Please correlate for pain or prior trauma to assess for nondisplaced rib fracture 4. Trace right pleural effusion Dictated by Radha Bowen MD @ 03/30/2025 8:21:17 AM (Electronically Signed)
== END 2025-03-27 09:53 | disposition home or self-care (01) ==
LOC: MRI 09:54
PROVIDERS: PCP Family Medicine; Visit Provider Family Medicine
DX: J90 Pleural effusion, not elsewhere classified (principal); R59.0 Localized enlarged lymph nodes
CPT/HCPCS: 71552; A9575